=== PATIENT | female | born 1945 | race Caucasian/White ===

== ENCOUNTER → 2016-10-28 | Outpatient (REF) | payer MEDICARE | LOC: M LAB REF 16:31 | PROVIDERS: ATTEND Physician Assistant | DX: N39.0 Urinary tract infection, site not specified (principal) ==

== ENCOUNTER → 2016-12-31 | Outpatient (CLI) | payer MEDICARE ==
--- NOTE | 2017-01-02 08:13 | RADONC ---
RADIATION ONCOLOGY FOLLOWUP NOTE DATE: 12/31/2016 CHART NUMBER: [id number] DIAGNOSIS: Left breast cancer. STAGE: 1A, [id number]. ECOG PERFORMANCE STATUS: 0. FOLLOWUP NOTE: Ms. 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 The patient presents today reporting that she is doing quite well with no complaints at this time related to her radiation therapy or disease. She has no breast or bone pain. The patient's review of systems is noncontributory. She denies nausea, vomiting, fevers, chills, night sweats, diplopia, headaches, anxiety or depression, anorexia, weight loss, visual disturbances, chest pain, urinary or bowel difficulties, bone pain, or neurological problems. PHYSICAL EXAMINATION: The patient is a well-developed, well-nourished, female in no acute distress. HEENT exam is normocephalic, atraumatic. Extraocular movements are intact. There is no palpable cervical, supraclavicular, infraclavicular, axillary, or inguinal lymphadenopathy present. Lungs are clear to auscultation and percussion. Heart has a regular rate and rhythm. Abdomen is benign with no hepatosplenomegaly, masses, or tenderness. Breast examination reveals no masses or discharge bilaterally. Skeletal examination reveals no tenderness to pressure or percussion of the bony skeleton. Extremities reveal no clubbing, cyanosis, or edema. Neurologic exam is grossly intact, as is the remainder of the physical examination. ASSESSMENT: The patient is clinically DUDLEY at this time and will be seen by us again in 1 year for further followup. She will also continue to be followed by her other physicians as well. cc: Stephani cAosta MD *Dr. Mae
== END ==
LOC: M ONCR 13:56
PROVIDERS: ATTEND Radiology Radiation Oncology
DX: C50.312 Malignant neoplasm of lower-inner quadrant of left female breast (principal)

== ENCOUNTER → 2017-03-12 | Outpatient (REF) | payer MEDICARE ==
[2017-03-12 14:24] LABS: PERCENT SATURATION 27.9 % (13.2-37.4)
== END ==
LOC: M LAB REF 13:39
PROVIDERS: ATTEND Internal Medicine Medical Oncology
DX: C34.90 Malignant neoplasm of unspecified part of unspecified bronchus or lung (principal); D64.9 Anemia, unspecified

== ENCOUNTER → 2017-06-24 | Outpatient (REF) | payer MEDICARE | LOC: M LAB REF 10:00 | PROVIDERS: ATTEND Physician Assistant Medical | DX: N39.0 Urinary tract infection, site not specified (principal) ==

== ENCOUNTER → 2017-07-30 | Outpatient (CLI) | payer MEDICARE ==
--- NOTE | 2017-07-30 10:10 | REP ---
Bilateral screening digital mammogram: The patient indicates that she has had a clinical breast exam on August 14, 2017. The patient has a history of left breast carcinoma with lumpectomy. Comparisons are 04/21/2014 and 04/20/2013. The surgical scar posteriorly in the left breast has significantly decreased from 04/20/2013. There is moderately dense heterogeneous breast parenchyma, not otherwise significantly changed. There are scattered benign calcifications, unchanged. There has been no interval development of masses, areas of structural distortion or clusters of microcalcifications typical of malignancy. Impression: There is no evidence of malignancy. BI-RADS/ACR category 2 mammogram. Benign finding(s). Routine annual screening mammography is recommended. This mammogram was interpreted with the aid of an FDA-approved computer-aided detection system. A. Negative x-ray reports should not delay biopsy if a dominant or clinically suspicious mass is present. B. Four to eight percent of cancers are not identified by x-ray. C. Adenosis and dense breasts may obscure an underlying neoplasm. The patient letter being requested is M1. Unreviewed MTDD
== END ==
LOC: M RAD 09:19
PROVIDERS: ATTEND Internal Medicine Medical Oncology
DX: Z12.31 Encounter for screening mammogram for malignant neoplasm of breast (principal)

== ENCOUNTER → 2017-11-09 | Outpatient (REF) | payer MEDICARE ==
[2017-11-09 22:35] LABS: APPEARANCE, URINE CLOUDY (CLEAR); BACTERIA, URINE AUTO 3+ (NEGATIVE); BILIRUBIN, URINE AUTO NEGATIVE (NEGATIVE); BLOOD, URINE BLOOD 3+ (NEGATIVE); COLOR, URINE YELLOW (YELLOW); GLUCOSE, URINE (UA) AUTO NEGATIVE (NEGATIVE); KETONE, URINE AUTO NEGATIVE (NEGATIVE); LEUKOCYTE ESTERASE, URINE AUTO 3+ (NEGATIVE); NITRITE, URINE AUTO NEGATIVE (NEGATIVE); PROTEIN, URINE AUTO 2+ mg/dL (NEGATIVE); RBC, URINE AUTO TNTC /HPF (0-3); SPECIFIC GRAVITY URINE AUTO 1.015 (1.002-1.035); SQUAMOUS EPITHELIAL CELL UR AU 1 /HPF (0-6); UROBILINOGEN, URINE AUTO 0.2 mg/dL (0.0-2.0); WBC, URINE AUTO TNTC /HPF (0-3)
== END ==
LOC: M LAB REF 15:56
DX: R30.0 Dysuria (principal)
CPT/HCPCS: 81001

== ENCOUNTER → 2018-02-12 | Outpatient (CLI) | payer MEDICARE ==
[2018-02-12 15:17] LABS: BASO % 0.6 % (0.0-1.0); EOS # 0.1 10^3/uL (0.0-0.50); EOS % 1.1 % (0.0-3.0); HEMATOCRIT 34.9 % (36.0-47.0); HEMOGLOBIN 11.4 g/dl (12.0-15.5); IMMATURE GRANULOCYTE % 0.3 % (0-3.0); LYMPH # 1.8 10^3/uL (1.5-4.5); LYMPH % 26.6 % (24.0-44.0); MEAN CORPUSCULAR HEMOGLOBIN 29.8 pg (27.0-33.0); MEAN CORPUSCULAR HGB CONC 32.7 g/dl (32.0-36.5); MEAN CORPUSCULAR VOLUME 91.1 fl (80.0-96.0); MONO # 0.4 10^3/uL (0.0-0.8); MONO % 6.5 % (0.0-5.0); NEUTROPHILS # 4.3 10^3/uL (1.8-7.7); NEUTROPHILS % 64.9 % (36.0-66.0); PLATELET COUNT, AUTOMATED 140 10^3/uL (150-450); RED BLOOD COUNT 3.83 10^6/uL (4.00-5.40); RED CELL DISTRIBUTION WIDTH 14.4 % (11.5-14.5); WHITE BLOOD COUNT 6.7 10^3/uL (4.0-10.0)
[2018-02-12 15:29] LABS: INR 1.18; PROTHROMBIN TIME 15.2 SECONDS (12.4-14.5)
[2018-02-12 15:30] LABS: PARTIAL THROMBOPLASTIN TIME 32.3 SECONDS (26.8-37.9)
[2018-02-12 15:33] LABS: ALBUMIN 3.6 GM/DL (3.2-5.2); ALBUMIN/GLOBULIN RATIO 0.97 (1.00-1.93); ALKALINE PHOSPHATASE 82 U/L (45-117); ALT/SGPT 32 U/L (12-78); AMYLASE 103 U/L (25-115); AST/SGOT 37 U/L (7-37); BILIRUBIN,DIRECT 0.2 MG/DL (0.0-0.2); BILIRUBIN,TOTAL 0.4 MG/DL (0.2-1.0); IRON (FE) 38 UG/DL (50-170); LIPASE 778 U/L (73-393); PERCENT SATURATION 8.8 % (13.2-45.0); TOTAL IRON BINDING CAPACITY 433 UG/DL (250-450); TOTAL PROTEIN 7.3 GM/DL (6.4-8.2)
[2018-02-12 15:49] LABS: HEPATITIS B SURFACE ANTIGEN NEGATIVE (NEGATIVE)
[2018-02-12 16:17] LABS: HEPATITIS C VIRUS ABY INDEX < 0.0 INDEX (<0.8)
[2018-02-12 16:18] LABS: HEPATITIS B CORE ANTIBODY IGM NEGATIVE (NEGATIVE)
[2018-02-12 16:19] LABS: HEPATITIS A ANTIBODY IGM NEGATIVE (NEGATIVE)
[2018-02-17 00:06] LABS: ANCA-ATYPICAL <1:20 titer (Neg:<1:20); ANTI-MITOCHONDRIAL ANTIBODY 2.6 Units (0.0-20.0); ANTINUCLEAR ANTIBODIES DIRECT Negative (Negative); CYTOPLASMIC NEUTROP AB ANCA-C <1:20 titer (Neg:<1:20); LIVER-KIDNEY MICROSOMAL ABY 1.1 Units (0.0-20.0); PERINUCLEAR AB ANCA-P <1:20 titer (Neg:<1:20)
== END ==
LOC: M LAB 14:24
DX: K76.6 Portal hypertension (principal); R19.7 Diarrhea, unspecified; K85.90 Acute pancreatitis without necrosis or infection, unspecified
CPT/HCPCS: 82150

== ENCOUNTER → 2018-02-14 | Outpatient (REF) | payer MEDICARE | LOC: M LAB REF 09:13 | DX: R19.7 Diarrhea, unspecified (principal) | CPT/HCPCS: 87507 ==

== ENCOUNTER 2018-02-26 11:22 | Day surgery (SDC) | payer MEDICARE ==
[~2018-02-26 11:22] MED LIST: GLYCOPYRROLATE INJ 0.2 MG/ML 2 ML VIAL As Ordered; HYDROmorphone HCL 2 MG/ML 1ML VIAL (J1170) As Ordered; KETOROLAC 60 MG/2 ML VIAL (J1885) As Ordered; LIDOCAINE 2% INJ 100 MG/5 ML SDV (FOR ANES.) As Ordered; MIDAZOLAM INJ 2 MG/2 ML VIAL (J2250) As Ordered; NEOSTIGMINE 10 MG/10 ML VIAL (J2710) As Ordered; ONDANSETRON 4MG/2ML VIAL (J2405) As Ordered; PROPOFOL 200 MG/20 ML VIAL As Ordered; ROCURONIUM BROMIDE 50 MG/5 ML VIAL As Ordered; dexameTHASONE 4 MG/ML 1ML VIAL (J1100) As Ordered; fentaNYL 100 MCG/2 ML INJECTION (J3010) As Ordered
[2018-02-26] MEDS ORDERED: LIDOCAINE 1% MDV 20ML VIAL SQ (11:30)
[2018-02-26] MEDS: LR 1,000 ML IV (12:03)
[2018-02-26] MEDS ORDERED: SCOPOLAMINE 1MG TRANSDERMAL PATCH As Ordered (12:57)
[2018-02-26 13:00] LABS: BEDSIDE GLUCOSE 203 MG/DL (83-110)
[2018-02-26] MEDS ORDERED: SCOPOLAMINE 1MG TRANSDERMAL PATCH TOP (13:00)
[2018-02-26] MEDS ORDERED: PHENYLephrine HCL 500 MCG/5 ML (100MCG/ML) SYRINGE (J2370) As Ordered (13:45)
[2018-02-26] MEDS ORDERED: LABETALOL HCL 100 MG/20 ML VIAL As Ordered (13:45)
[2018-02-26] MEDS ORDERED: ONDANSETRON 4MG/2ML VIAL (J2405) IV (14:45)
[2018-02-26] MEDS ORDERED: fentaNYL 100 MCG/2 ML INJECTION (J3010) IV (14:45)
[2018-02-26] MEDS ORDERED: PERCOCET 5MG/325MG TAB PO (14:45)
[2018-02-26] MEDS ORDERED: LR 1,000 ML IV (14:45)
[2018-02-26] MEDS ORDERED: NORCO, ANEXSIA 5/325MG TABLET (HYDROcodone/ACETAMINOPHEN) PO (14:45)
== END 2018-02-26 17:10 | disposition home or self-care (01) ==
LOC: M SDC 11:22
DX: K85.10 Biliary acute pancreatitis without necrosis or infection (principal); I11.0 Hypertensive heart disease with heart failure; E11.9 Type 2 diabetes mellitus without complications; H40.9 Unspecified glaucoma; M10.9 Gout, unspecified; K58.9 Irritable bowel syndrome, unspecified; E78.00 Pure hypercholesterolemia, unspecified; T88.59XD Other complications of anesthesia, subsequent encounter; I50.9 Heart failure, unspecified; R23.3 Spontaneous ecchymoses; M12.9 Arthropathy, unspecified; Z88.1 Allergy status to other antibiotic agents; Z88.5 Allergy status to narcotic agent; Z88.8 Allergy status to other drugs, medicaments and biological substances; Z91.040 Latex allergy status; Z79.899 Other long term (current) drug therapy; Z79.84 Long term (current) use of oral hypoglycemic drugs; Z85.3 Personal history of malignant neoplasm of breast; Z92.3 Personal history of irradiation; Z90.710 Acquired absence of both cervix and uterus; Z87.442 Personal history of urinary calculi
CPT/HCPCS: 47562

== ENCOUNTER → 2018-03-19 | Outpatient (CLI) | payer MEDICARE ==
[2018-03-19 13:08] LABS: ALPHA FETOPROTEIN TUMOR QUANT 4.3 NG/ML (<8.1)
[2018-03-19 13:30] LABS: LIPASE 446 U/L (73-393)
[2018-03-19 13:30] LABS: AMYLASE 85 U/L (25-115)
[2018-03-23 00:06] LABS: IgG SUBCLASS 4(ONLY) 7 mg/dL (2-96)
== END ==
LOC: M LAB 11:55
DX: R11.0 Nausea (principal)
CPT/HCPCS: 82150

== ENCOUNTER → 2018-03-20 | Outpatient (CLI) | payer MEDICARE | LOC: M RAD 08:35 | DX: K85.91 Acute pancreatitis with uninfected necrosis, unspecified (principal) | CPT/HCPCS: 74181 ==

== ENCOUNTER 2018-04-08 11:08 | Day surgery (SDC) | payer MEDICARE ==
[2018-04-08] MEDS ORDERED: NS 1,000 ML IV (13:30)
[2018-04-08] MEDS ORDERED: PROPOFOL 200 MG/20 ML VIAL As Ordered (13:32)
== END 2018-04-08 14:32 | disposition home or self-care (01) ==
LOC: M OPP 11:08
DX: K76.6 Portal hypertension (principal); R11.0 Nausea; K31.7 Polyp of stomach and duodenum; I10 Essential (primary) hypertension; E78.5 Hyperlipidemia, unspecified; E11.9 Type 2 diabetes mellitus without complications; K57.32 Diverticulitis of large intestine without perforation or abscess without bleeding; K58.9 Irritable bowel syndrome, unspecified; K74.60 Unspecified cirrhosis of liver; K21.9 Gastro-esophageal reflux disease without esophagitis; K85.90 Acute pancreatitis without necrosis or infection, unspecified; R23.3 Spontaneous ecchymoses; M19.90 Unspecified osteoarthritis, unspecified site; M10.9 Gout, unspecified; H40.9 Unspecified glaucoma; Z78.0 Asymptomatic menopausal state; Z85.3 Personal history of malignant neoplasm of breast; Z92.3 Personal history of irradiation; Z87.442 Personal history of urinary calculi; Z88.0 Allergy status to penicillin; Z88.8 Allergy status to other drugs, medicaments and biological substances; Z88.1 Allergy status to other antibiotic agents; Z88.3 Allergy status to other anti-infective agents; Z88.5 Allergy status to narcotic agent; Z91.012 Allergy to eggs; Z91.040 Latex allergy status; Z88.2 Allergy status to sulfonamides; Z79.84 Long term (current) use of oral hypoglycemic drugs; Z79.899 Other long term (current) drug therapy
CPT/HCPCS: 43235

== ENCOUNTER → 2018-05-13 | Outpatient (CLI) | payer MEDICARE | LOC: M WHC 09:59 | DX: M85.851 Other specified disorders of bone density and structure, right thigh (principal); M85.852 Other specified disorders of bone density and structure, left thigh; C50.019 Malignant neoplasm of nipple and areola, unspecified female breast; Z79.899 Other long term (current) drug therapy | CPT/HCPCS: 77080 ==

== ENCOUNTER → 2018-05-18 | Outpatient (CLI) | payer MEDICARE ==
[2018-05-18 15:49] LABS: AMYLASE 138 U/L (25-115)
[2018-05-18 15:49] LABS: LIPASE 1126 U/L (73-393)
== END ==
LOC: M LAB 14:38
DX: R11.0 Nausea (principal)
CPT/HCPCS: 82150

== ENCOUNTER → 2018-07-01 | Outpatient (CLI) | payer MEDICARE ==
[2018-07-01 15:36] LABS: ALBUMIN 3.6 GM/DL (3.2-5.2); ALBUMIN/GLOBULIN RATIO 1.09 (1.00-1.93); ALKALINE PHOSPHATASE 57 U/L (45-117); ALT/SGPT 21 U/L (12-78); AMYLASE 126 U/L (25-115); AST/SGOT 21 U/L (7-37); BILIRUBIN,DIRECT 0.2 MG/DL (0.0-0.2); BILIRUBIN,TOTAL 0.4 MG/DL (0.2-1.0); LIPASE 3080 U/L (73-393); TOTAL PROTEIN 6.9 GM/DL (6.4-8.2)
== END ==
LOC: M LAB 14:15
DX: R74.8 Abnormal levels of other serum enzymes (principal)
CPT/HCPCS: 82150

== ENCOUNTER 2018-09-09 14:30 | Emergency (ER) | payer MEDICARE ==
[2018-09-09 17:08] LABS: KETONE, URINE AUTO RFX NEGATIVE (NEGATIVE); LEUKOCYTE ESTERASE UR AUTO RFX NEGATIVE (NEGATIVE); MUCUS, URINE RFX SMALL (NEGATIVE); NITRITE, URINE AUTO RFX NEGATIVE (NEGATIVE); RBC, URINE AUTO RFX 0 /HPF (0-3); SPECIFIC GRAVITY UR AUTO RFX 1.023 (1.002-1.035); SQUAM EPITHELIAL CELL UR AURFX 0 /HPF (0-6); WBC, URINE AUTO RFX 3 /HPF (0-3)
[2018-09-09] MEDS: diazePAM 5 MG TAB PO (17:10)
[2018-09-09] MEDS: KETOROLAC 60 MG/2 ML VIAL (J1885) IM (17:10)
== END 2018-09-09 18:38 | disposition home or self-care (01) ==
LOC: M ED 14:30
DX: S39.012A Strain of muscle, fascia and tendon of lower back, initial encounter (principal); X58.XXXA Exposure to other specified factors, initial encounter; Y92.099 Unspecified place in other non-institutional residence as the place of occurrence of the external cause; Y93.E5 Activity, floor mopping and cleaning; Y99.9 Unspecified external cause status; E11.9 Type 2 diabetes mellitus without complications; I10 Essential (primary) hypertension; Z87.442 Personal history of urinary calculi; K21.9 Gastro-esophageal reflux disease without esophagitis; H40.9 Unspecified glaucoma; Z79.84 Long term (current) use of oral hypoglycemic drugs; Z79.899 Other long term (current) drug therapy; Z88.0 Allergy status to penicillin; Z88.8 Allergy status to other drugs, medicaments and biological substances; Z88.5 Allergy status to narcotic agent; Z88.1 Allergy status to other antibiotic agents; Z91.012 Allergy to eggs; Z91.89 Other specified personal risk factors, not elsewhere classified; Z88.2 Allergy status to sulfonamides
CPT/HCPCS: J1885

== ENCOUNTER → 2018-12-14 | Outpatient (CLI) | payer MEDICARE ==
[~2018-12-14] MED LIST changes: +ALLO100T PO; +ARIM1TAB5 PO; +BIMA01SOL OU; +BISO5TAB5 PO; +CALC600T60 PO; +DIAZ2TAB PO; +FLOM0.4C39 PO; +FLUTISP; -GLYCOPYRROLATE INJ 0.2 MG/ML 2 ML VIAL As Ordered; -HYDROmorphone HCL 2 MG/ML 1ML VIAL (J1170) As Ordered; -KETOROLAC 60 MG/2 ML VIAL (J1885) As Ordered; -LIDOCAINE 2% INJ 100 MG/5 ML SDV (FOR ANES.) As Ordered; +LISI10TA4 PO; +METF500T13 PO; +METF850T4 PO; -MIDAZOLAM INJ 2 MG/2 ML VIAL (J2250) As Ordered; +MULT1TAB10 PO; +NAPR-50 PO; -NEOSTIGMINE 10 MG/10 ML VIAL (J2710) As Ordered; -ONDANSETRON 4MG/2ML VIAL (J2405) As Ordered; +PANT20TA2 PO; -PROPOFOL 200 MG/20 ML VIAL As Ordered; -ROCURONIUM BROMIDE 50 MG/5 ML VIAL As Ordered; +SIMV20TA2 PO; +TRIA37.5 PO; +TRIAMT/HCTZ; +VALI2TAB PO; +VICT18IN SC; -dexameTHASONE 4 MG/ML 1ML VIAL (J1100) As Ordered; -fentaNYL 100 MCG/2 ML INJECTION (J3010) As Ordered
[2018-12-14 10:46] LABS: HEMATOCRIT 35.4 % (36.0-47.0); HEMOGLOBIN 11.4 g/dl (12.0-15.5); MEAN CORPUSCULAR HEMOGLOBIN 28.8 pg (27.0-33.0); MEAN CORPUSCULAR HGB CONC 32.2 g/dl (32.0-36.5); MEAN CORPUSCULAR VOLUME 89.4 fl (80.0-96.0); PLATELET COUNT, AUTOMATED 144 10^3/uL (150-450); RED BLOOD COUNT 3.96 10^6/uL (4.00-5.40); WHITE BLOOD COUNT 5.8 10^3/uL (4.0-10.0)
[2018-12-14 11:15] LABS: ALBUMIN 3.8 GM/DL (3.2-5.2); BILIRUBIN,TOTAL 0.6 MG/DL (0.2-1.0); CALCIUM LEVEL 8.6 MG/DL (8.8-10.2); CREATININE FOR GFR 1.08 MG/DL (0.55-1.30); GLOMERULAR FILTRATION RATE 52.8 (>39); POTASSIUM SERUM 3.9 MEQ/L (3.5-5.1)
--- NOTE | 2018-12-14 12:29 | REP ---
Abdominal right upper quadrant ultrasound for cirrhosis surveillance: Comparisons are 02/01/2018 and abdominal and pelvic CT of 02/01/2018. The the patient had a cholecystectomy approximate 1 year ago. There is no intrahepatic or extrahepatic biliary duct dilatation, the common duct measures 4.9 mm in diameter. The hepatic parenchyma is diffusely coarsened heterogeneous compatible with the clinical history of cirrhosis. No hepatic masses are identified. The umbilical vein is recannulated compatible with portal hypertension. The portal vein measures 15 mm in diameter which is slightly dilated, also compatible with portal hypertension. The pancreas is obscured and not optimally visualized. The right kidney measures 8.3 x 4.5 x 3.6 cm and is atrophic size. There is diffuse right renal cortical thinning. There is no right renal hydronephrosis, calculus, mass or cyst. There is no right upper quadrant abdominal ascites. Impression: No hepatic masses are identified. The hepatic parenchyma is diffusely coarsened compatible with the clinical history of cirrhosis. There is recanalization of the umbilical vein and in the portal vein is mildly dilated. These findings are compatible with portal hypertension. There is no right upper quadrant abdominal ascites. Cholecystectomy. Electronically Signed by Simeon Urias MD 12/14/2018 12:22 P
== END ==
LOC: M RAD 09:04
PROVIDERS: ATTEND Physician Assistant Medical
DX: K74.60 Unspecified cirrhosis of liver (principal)

== ENCOUNTER → 2019-01-03 | Outpatient (CLI) | payer MEDICARE ==
[~2019-01-03] MED LIST changes: +ANAS1TAB2 PO; -NAPR-50 PO; +NAPR-837 PO
--- NOTE | 2019-01-07 19:15 | REP ---
ABDOMEN, SITZ MARKER STUDY: 01/07/2019. Clinical history: Sitz marker study. The patient returned 4 days post ingestion of the sitz marker capsule, not the usual 5 days due to her statement that this is when she was instructed to return by the technologist. Findings: A single image is performed. Although it is day four, there are no ring markers from the sitz capsule visible anywhere in the abdomen or pelvis. Assuming observation of the capsule ingestion, all of these have passed. Electronically Signed by Ger Lambert MD 01/08/2019 12:00 P
== END ==
LOC: M RAD 13:52
PROVIDERS: ATTEND Physician Assistant Medical
DX: R19.7 Diarrhea, unspecified (principal)

== ENCOUNTER → 2019-01-28 | Outpatient (CLI) | payer MEDICARE ==
[~2019-01-28] MED LIST changes: +NAPR-50 PO; -NAPR-837 PO
[2019-01-28 13:32] LABS: CREATININE FOR GFR 1.13 MG/DL (0.55-1.30); GLOMERULAR FILTRATION RATE 50.1 (>39)
== END ==
LOC: M LAB 12:12
PROVIDERS: ATTEND Physician Assistant Medical
DX: R74.8 Abnormal levels of other serum enzymes (principal)

== ENCOUNTER → 2019-02-03 | Outpatient (CLI) | payer MEDICARE ==
[~2019-02-03] MED LIST changes: -NAPR-50 PO; +NAPR-837 PO; +PROHANCE 279.3MG/ML 5ML VIAL (A9576) As Ordered ONE
--- NOTE | 2019-02-03 17:15 | REP ---
MRI abdomen and pancreas without and with IV gadolinium: History: Persistently elevated pancreatic enzymes following an episode of pancreatitis in January 2018. Please evaluate, attention to the pancreas. Comparison MRI study is from March 20, 2018. 5 ml of intravenous ProHance is administered for or half-dose gadolinium enhancement. Technique: Axial and coronal T1 and T2-weighted scans were obtained. Sequences include spin-echo, fast spin echo, gradient echo, in and cll-zz-ookpy, and dynamically acquired sequential post contrast images with T1 fat sat sequence. MRI findings: The left lobe of the liver appears somewhat hypertrophied. Liver contour is macronodular. The spleen is enlarged measuring up to 14.8 cm. It is homogeneous. This and the finding of recannulation of the umbilical vein suggest portal hypertension and possibly cirrhosis. There is no evidence of ascites. No hepatic mass lesion is seen. There are one or two tiny subcentimeter hepatic cysts. There are two tiny cysts adjacent to one another in the body of the pancreas along its inferior margin. In the aggregate, these cysts measure 13 mm in greatest diameter. The pancreatic duct is not dilated. The common bile duct is not dilated. The gallbladder is surgically absent. Postcontrast images of the pancreas show no evidence of abnormal enhancement either increased or decreased. No enhancement is seen in the two small cysts noted inferiorly. No retroperitoneal or upper abdominal adenopathy is seen. No adrenal abnormality observed. The findings are felt to be unchanged from the March 20, 2018 prior images. Impression: Findings suggestive of cirrhosis and portal hypertension. Splenomegaly. Recanalization of the umbilical vein. Prominent left lobe and macronodular liver contour. There is a 13 mm septated cyst in the posterior and inferior margin of the pancreas body unchanged. No pancreatic or biliary ductal dilation is observed. Otherwise negative. Electronically Signed by Zeb Ernst MD 02/03/2019 06:56 P
== END ==
LOC: M RAD 13:12
PROVIDERS: ATTEND Physician Assistant Medical
DX: R74.9 Abnormal serum enzyme level, unspecified (principal)
CPT/HCPCS: 74183; A9576

== ENCOUNTER → 2019-06-15 | Outpatient (CLI) | payer MEDICARE ==
[~2019-06-15] MED LIST changes: -PROHANCE 279.3MG/ML 5ML VIAL (A9576) As Ordered ONE
[2019-06-15 16:27] LABS: BASO % 0.5 % (0.0-1.0); EOS # 0.1 10^3/uL (0.0-0.50); EOS % 2.1 % (0.0-3.0); HEMATOCRIT 34.8 % (36.0-47.0); HEMOGLOBIN 11.1 g/dl (12.0-15.5); LYMPH # 1.2 10^3/uL (1.5-4.5); LYMPH % 28.5 % (24.0-44.0); MEAN CORPUSCULAR HEMOGLOBIN 28.2 pg (27.0-33.0); MEAN CORPUSCULAR HGB CONC 31.9 g/dl (32.0-36.5); MEAN CORPUSCULAR VOLUME 88.3 fl (80.0-96.0); MONO # 0.3 10^3/uL (0.0-0.8); MONO % 7.4 % (0.0-5.0); NEUTROPHILS # 2.7 10^3/uL (1.8-7.7); NEUTROPHILS % 61.3 % (36.0-66.0); RED BLOOD COUNT 3.94 10^6/uL (4.00-5.40); WHITE BLOOD COUNT 4.4 10^3/uL (4.0-10.0)
[2019-06-15 16:41] LABS: ALBUMIN 3.4 GM/DL (3.2-5.2); BILIRUBIN,TOTAL 0.3 MG/DL (0.2-1.0); CALCIUM LEVEL 8.6 MG/DL (8.8-10.2); CREATININE FOR GFR 1.23 MG/DL (0.55-1.30); GLOMERULAR FILTRATION RATE 45.4 (>39); POTASSIUM SERUM 3.3 MEQ/L (3.5-5.1); TOTAL PROTEIN 6.9 GM/DL (6.4-8.2)
[2019-06-15 17:45] LABS: PLATELET COUNT, AUTOMATED 96 10^3/uL (150-450)
--- NOTE | 2019-06-17 09:10 | ECGEPIP ---
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
== END ==
LOC: M LAB 14:27
PROVIDERS: ATTEND Internal Medicine Gastroenterology
DX: K86.2 Cyst of pancreas (principal); R74.8 Abnormal levels of other serum enzymes

== ENCOUNTER → 2019-10-03 | Outpatient (CLI) | payer MEDICARE ==
[~2019-10-03] MED LIST changes: -BISO5TAB5 PO; +BISO5TAB9 PO; -SIMV20TA2 PO; +SIMV20TA22 PO
--- NOTE | 2019-10-03 10:39 | REP ---
RIGHT UPPER QUADRANT ULTRASOUND: Real-time sonographic evaluation of the right upper quadrant was performed. The patient has had a prior cholecystectomy. Common bile duct measures 8 mm maximally which is normal for a patient status post cholecystectomy. Echotexture of the liver is diffusely heterogenous and increased compatible with diffuse fibrofatty infiltration. Somewhat nodular surface. Findings of cirrhosis. No gross mass is seen. There is a recannulized umbilical vein noted. Pancreas is not well seen due to overlying bowel gas. Right kidney demonstrates no hydronephrosis with normal size 10.3 cm in length. No ascites is seen. IMPRESSION:Status-post cholecystectomy. No significant biliary dilatation. Diffuse heterogenous increased echotexture of the liver compatible with cirrhosis, with recannulized umbilical vein. Liver is difficult to penetrate due to extensive fibrofatty infiltration. No gross mass is seen. Electronically Signed by Simeon Mace MD 10/03/2019 03:50 P
[2019-10-03 10:50] LABS: AMYLASE 106 U/L (25-115); LIPASE 594 U/L (73-393)
[2019-10-05 00:06] LABS: ANTINUCLEAR ANTIBODIES DIRECT Negative (Negative); IgG SERUM (part of Subclasses) 909 mg/dL (700-1600); IgG Subclass 1 339 mg/dL (248-810); IgG Subclass 2 436 mg/dL (130-555); IgG Subclass 3 56 mg/dL (15-102); IgG Subclass 4 18 mg/dL (2-96)
== END ==
LOC: M RAD 08:48
PROVIDERS: ATTEND Physician Assistant Medical
DX: K86.2 Cyst of pancreas (principal); K74.60 Unspecified cirrhosis of liver; Z90.49 Acquired absence of other specified parts of digestive tract

== ENCOUNTER → 2019-10-05 | Outpatient (CLI) | payer MEDICARE ==
--- NOTE | 2019-10-05 12:02 | REPMRS ---
Patient History The patient states she has not had a clinical breast exam in over a year. Family history of breast cancer under age 50 in maternal aunt, breast cancer at age 50 or over in paternal aunt. Malignant localization of breast nodule of the left breast, May 21, 2011. Radiation therapy of the left breast, 2010. 3D TOMOSYNTHESIS WAS PERFORMED. Digital Mammo Screening Bilat: October 05, 2019 - Exam #: [id number] Bilateral CC and MLO view(s) were taken. Technologist: Melissa Parham, Technologist Prior study comparison: July 30, 2017, bilateral digital mammo screening bilat performed at [facility]. May 12, 2016, digital woman screen mammo, performed at [facility]. FINDINGS: There are scattered fibroglandular densities. There has been no change in the appearance of the mammogram from the prior studies. There is a mild amount of residual fibroglandular tissue which is fairly symmetric. There is no interval development of dominant mass, architectural distortion, or clustered microcalcification suggestive of malignancy. Assessment: BI-RADS/ACR category 1 mammogram. Negative Mammogram. Recommendation Routine screening mammogram in 1 year (for women over age 40). This mammogram was interpreted with the aid of an FDA-approved computer-aided dectection system. Electronically Signed By: Simeon Mace MD 10/05/19 1127
== END ==
LOC: M RAD 10:31
PROVIDERS: ATTEND Internal Medicine
DX: Z12.31 Encounter for screening mammogram for malignant neoplasm of breast (principal)

== ENCOUNTER → 2020-04-05 | Outpatient (CLI) | payer MEDICARE ==
[~2020-04-05] MED LIST changes: +BISO5TAB14 PO; -BISO5TAB9 PO
--- NOTE | 2020-04-05 09:58 | REP ---
RIGHT UPPER QUADRANT ULTRASOUND: Real-time sonographic evaluation of the right upper quadrant performed. The patient has had a prior cholecystectomy. There is expected prominence of the common bile duct 10 mm in diameter. There is a patent umbilical vein. Live has a cirrhotic appearance with coarsened echotexture. No gross liver mass is seen. Pancreas could not be seen due to overlying bowel gas. Right kidney demonstrates no hydronephrosis with normal size 9.7 cm in length. There is no ascites. In the midline of the site of a palpable lump is a ventral hernia, the hernia defect measures 1.9 cm in diameter. Peritoneal fat protrudes into the hernia sac with coughing. IMPRESSION: Status post cholecystectomy. Cirrhotic liver with patent umbilical vein. No ascites seen. At the site of a palpable lump in the midline of the abdomen, is a ventral hernia with the aperture of the hernia 1.9 cm. A small amount of peritoneal fat protrudes into the hernia sac with coughing. Electronically Signed by Simeon Mace MD 04/10/2020 05:49 P
== END ==
LOC: M RAD 09:02
PROVIDERS: ATTEND Physician Assistant Medical
DX: K74.60 Unspecified cirrhosis of liver (principal); K43.9 Ventral hernia without obstruction or gangrene

== ENCOUNTER → 2020-10-09 | Outpatient (CLI) | payer MEDICARE ==
[~2020-10-09] MED LIST changes: +ACET-897 PO; +ALBU83IN NEB; +FURO20TA2 PO; +INSUNSD SC; +LANTINJ4 SC; -PANT20TA2 PO; +PANT20TA6 PO; +POTA10808 PO; +TRAM50TA2 PO; +VITA400T15 PO; +ZOCO20TA PO
--- NOTE | 2020-10-09 10:34 | REP ---
INDICATION: UNSPECIFIED CIRRHOSIS OF LIVER LABS . COMPARISON: 04/05/2020. TECHNIQUE: Real-time sonographic evaluation of right upper quadrant performed. FINDINGS: There has been a prior cholecystectomy.. There is no intrahepatic or extrahepatic biliary dilatation, common bile duct measures 6 mm in maximum diameter. Liver demonstrates diffuse coarsened increased echotexture compatible with diffuse fibrofatty infiltration. No gross mass is seen. Patent umbilical vein is again noted. Pancreas cannot be visualized due to overlying bowel gas. The right kidney demonstrates no hydronephrosis, with a normal size of 9.7 cm in length. No free fluid is seen. IMPRESSION: Chronic liver changes with no gross mass. Patent umbilical vein again noted. No significant change compared to prior study. <Electronically signed by Simeon Mace > 10/09/20 [id number]
== END ==
LOC: M RAD 09:00
PROVIDERS: ATTEND Physician Assistant Medical
DX: K74.60 Unspecified cirrhosis of liver (principal); R74.8 Abnormal levels of other serum enzymes

== ENCOUNTER → 2020-11-06 | Outpatient (CLI) | payer MEDICARE ==
--- NOTE | 2020-11-06 12:59 | REPMRS ---
Patient History The patient states she has not had a clinical breast exam in over a year. Patient is postmenopausal and has history of breast cancer at age 65. Family history of breast cancer under age 50 in maternal aunt, breast cancer at age 50 or over in paternal aunt. Malignant localization of breast nodule of the left breast, May 21, 2011. Radiation therapy of the left breast, 2010. 3D TOMOSYNTHESIS WAS PERFORMED. Volpara breast density b. Digital Woman Screen Mammo: November 06, 2020 - Exam #: [id number] Bilateral CC and MLO view(s) were taken. Technologist: Halle Morales, Technologist Prior study comparison: October 05, 2019, bilateral digital mammo screening bilat, performed at [facility]. July 30, 2017, bilateral digital mammo screening bilat, performed at [facility]. FINDINGS: There are scattered fibroglandular densities. There has been no change in the appearance of the mammogram from the prior studies. There is a mild amount of residual fibroglandular tissue which is fairly symmetric. There is no interval development of dominant mass, architectural distortion, or clustered microcalcification suggestive of malignancy.Large coarse benign appearing calcifications are present. No significant changes when compared with prior studies. Assessment: BI-RADS/ACR category 1 mammogram. Negative Mammogram. Recommendation Routine screening mammogram in 1 year (for women over age 40). This mammogram was interpreted with the aid of an FDA-approved computer-aided dectection system. Electronically Signed By: Simeon Mace MD 11/06/20 [id number]
== END ==
LOC: M WHC 12:06
PROVIDERS: ATTEND Internal Medicine Hematology & Oncology
DX: Z12.31 Encounter for screening mammogram for malignant neoplasm of breast (principal); Z85.3 Personal history of malignant neoplasm of breast; Z92.3 Personal history of irradiation

== ENCOUNTER → 2020-11-09 | Outpatient (REF) | payer MEDICARE ==
[~2020-11-09] MED LIST changes: +LISI10TA22 PO; -LISI10TA4 PO
[2020-11-15 12:10] LABS: FATS NEUTRAL Normal (.); FATS TOTAL Normal (.)
== END ==
LOC: M LAB REF 15:08
PROVIDERS: ATTEND Internal Medicine Hematology & Oncology
DX: R19.5 Other fecal abnormalities (principal)

== ENCOUNTER → 2021-06-25 | Outpatient (CLI) | payer MEDICARE ==
--- NOTE | 2021-06-25 11:23 | REP ---
INDICATION: BARRY W/ LIVER CIRRHOSIS-LABS FIRST. COMPARISON: 10/09/2020. TECHNIQUE: Real-time sonographic evaluation of right upper quadrant performed. FINDINGS: The patient has had a prior cholecystectomy.. There is no intrahepatic or extrahepatic biliary dilatation, common bile duct measures 8 mm in maximum diameter. The liver demonstrates diffuse heterogeneous increased echotexture compatible with diffuse fibrofatty infiltration. There is a patent umbilical vein. No gross liver mass is seen. Pancreas is not seen due to overlying bowel gas. The right kidney demonstrates no hydronephrosis, with a normal size of 9.6 cm in length. No free fluid is seen. IMPRESSION: No change since prior exam. Chronic liver changes with no gross mass. <Electronically signed by Simeon Mace > 06/25/21 [id number]
== END ==
LOC: M RAD 09:38
PROVIDERS: ATTEND Physician Assistant Medical
DX: K75.81 Nonalcoholic steatohepatitis (NASH) (principal); K70.31 Alcoholic cirrhosis of liver with ascites

== ENCOUNTER → 2022-02-21 | Outpatient (CLI) | payer MEDICARE | LOC: M WHC 12:51 | PROVIDERS: ATTEND Internal Medicine Hematology & Oncology | DX: Z13.820 Encounter for screening for osteoporosis (principal); Z12.31 Encounter for screening mammogram for malignant neoplasm of breast; Z85.3 Personal history of malignant neoplasm of breast; M85.88 Other specified disorders of bone density and structure, other site; M85.851 Other specified disorders of bone density and structure, right thigh; M85.852 Other specified disorders of bone density and structure, left thigh ==

== ENCOUNTER → 2022-02-21 | Outpatient (CLI) | payer MEDICARE | LOC: M PLARAD 14:33 | PROVIDERS: ATTEND Internal Medicine Hematology & Oncology | DX: Z85.3 Personal history of malignant neoplasm of breast (principal); M25.511 Pain in right shoulder; M67.813 Other specified disorders of tendon, right shoulder ==

== ENCOUNTER → 2022-02-26 | Outpatient (CLI) | payer MEDICARE | LOC: M WHC 09:57 | PROVIDERS: ATTEND Physician Assistant Medical | DX: K74.60 Unspecified cirrhosis of liver (principal); Z90.49 Acquired absence of other specified parts of digestive tract; K43.9 Ventral hernia without obstruction or gangrene ==

== ENCOUNTER → 2022-04-09 | Outpatient (CLI) | payer MEDICARE ==
[~2022-04-09] MED LIST changes: +ALBU2.5V10 NEB; -ALBU83IN NEB; +D32000TA PO; +FERR324T2 PO; -FLUTISP; +FLUTISP NARES; +FURO40TA2 PO; +INSUDET SC; +POTA10CA32 PO
== END ==
LOC: M PLAIMG 11:18
PROVIDERS: ATTEND Orthopaedic Surgery
DX: M50.30 Other cervical disc degeneration, unspecified cervical region (principal)

== ENCOUNTER 2022-04-14 10:58 | Observation (INO) | payer MEDICARE ==
[~2022-04-14] VITALS: Ht 147.3 cm; Wt 78.0 kg
[2022-04-14] VITALS (8 sets, daily range): BP systolic 113–140; BP diastolic 55–69
[~2022-04-14 10:58] MED LIST changes: -D32000TA PO; -FERR324T2 PO; -FURO40TA2 PO; -INSUDET SC; -POTA10CA32 PO
[2022-04-14 12:06] LABS: BASO % 0.5 % (0.0-1.0); EOS # 0.1 10^3/uL (0.0-0.5); EOS % 1.3 % (0.0-3.0); HEMATOCRIT 24.2 % (36.0-47.0); HEMOGLOBIN 7.3 g/dl (12.0-15.5); LYMPH # 0.8 10^3/uL (1.5-5.0); LYMPH % 20.1 % (24.0-44.0); MEAN CORPUSCULAR HEMOGLOBIN 29.1 pg (27.0-33.0); MEAN CORPUSCULAR HGB CONC 30.2 g/dl (32.0-36.5); MEAN CORPUSCULAR VOLUME 96.4 fl (80.0-96.0); MONO # 0.3 10^3/uL (0.0-0.8); MONO % 6.8 % (2.0-8.0); NEUTROPHILS # 2.7 10^3/uL (1.5-8.5); NEUTROPHILS % 70.8 % (36.0-66.0); RED BLOOD COUNT 2.51 10^6/uL (4.00-5.40); WHITE BLOOD COUNT 3.8 10^3/uL (4.0-10.0)
[2022-04-14 12:09] LABS: PLATELET COUNT, AUTOMATED 83 10^3/uL (150-450)
[2022-04-14 12:33] LABS: CREATININE FOR GFR 1.3 MG/DL (0.55-1.30)
[2022-04-14 12:34] LABS: CALCIUM LEVEL 8.8 MG/DL (8.8-10.2); GLOMERULAR FILTRATION RATE 42.3 (>39); POTASSIUM SERUM 4.2 MEQ/L (3.5-5.1)
[2022-04-14 13:09] LABS: ALBUMIN 2.9 GM/DL (3.2-5.2); BILIRUBIN,DIRECT 0.3 MG/DL (0.0-0.2); BILIRUBIN,TOTAL 0.6 MG/DL (0.2-1.0); PERCENT SATURATION 12.9 % (13.2-45.0); TOTAL PROTEIN 6.5 GM/DL (6.4-8.2)
[2022-04-14 13:54] LABS: INR 1.22; PARTIAL THROMBOPLASTIN TIME 30.1 SECONDS (25.9-37.0); PROTHROMBIN TIME 15.8 SECONDS (12.7-14.5)
[2022-04-14 14:29] LABS: RSV AMPLIFICATION NEGATIVE (NEGATIVE)
[2022-04-14] MEDS ORDERED: ACETAMINOPHEN TAB 650MG DOSE (2X325MG) PO PRN (16:50)
[2022-04-14] MEDS ORDERED: FURO40TA2 PO (17:28)
[2022-04-14] MEDS ORDERED: D32000TA PO (17:28)
[2022-04-14] MEDS ORDERED: POTA10CA32 PO (17:28)
[2022-04-14] MEDS ORDERED: HOME MED LIST COMPLETE! XX SCH (17:30)
[2022-04-14] MEDS ORDERED: FLUTICASONE PROP 0.05% NASAL SPRAY 16 GM (FLONASE) NARES PRN (17:30)
[2022-04-14 17:34] LABS: HEMATOCRIT 23.3 % (36.0-47.0); HEMOGLOBIN 7.1 g/dl (12.0-15.5)
[2022-04-14] MEDS ORDERED: DEXTROSE 50% 50 ML SYRINGE IV PRN (17:35)
[2022-04-14] MEDS ORDERED: GLUCOSE 4GM CHEW TABLET PO PRN (17:35)
[2022-04-14] MEDS ORDERED: GLUCAGON INJ 1MG VIAL SC PRN (17:35)
[2022-04-14] MEDS ORDERED: SIMVASTATIN 20 MG TAB PO SCH (21:00)
[2022-04-14] MEDS ORDERED: INSULIN LISPRO (NovoLOG) PER UNIT SC SCH (21:00)
[2022-04-14] MEDS ORDERED: POTASSIUM CHLORIDE 10MEQ SR TABLET PO SCH (21:00)
[2022-04-14] MEDS ORDERED: LEVEMIR (INSULIN DETEMIR) 1 UNITS/0.01ML SC SCH (21:00)
[2022-04-14] MEDS ORDERED: FUROSEMIDE 20MG/2ML VIAL (J1940) IV ONE (21:00)
[2022-04-14] MEDS ORDERED: bisoproloL fumarate 5 MG TAB PO SCH (21:00)
[2022-04-15 00:30] VITALS: BP 132/61
[2022-04-15 04:00] VITALS: BP 118/56
[2022-04-15 04:12] LABS: HEMATOCRIT 29.2 % (36.0-47.0); MEAN CORPUSCULAR HEMOGLOBIN 29.8 pg (27.0-33.0); MEAN CORPUSCULAR HGB CONC 32.2 g/dl (32.0-36.5); MEAN CORPUSCULAR VOLUME 92.7 fl (80.0-96.0); RED BLOOD COUNT 3.15 10^6/uL (4.00-5.40); WHITE BLOOD COUNT 4.5 10^3/uL (4.0-10.0)
[2022-04-15 04:17] LABS: PLATELET COUNT, AUTOMATED 69 10^3/uL (150-450)
[2022-04-15 04:18] LABS: HEMOGLOBIN 9.4 g/dl (12.0-15.5)
[2022-04-15 04:40] LABS: CALCIUM LEVEL 8.8 MG/DL (8.8-10.2); CREATININE FOR GFR 1.29 MG/DL (0.55-1.30); GLOMERULAR FILTRATION RATE 42.7 (>39); POTASSIUM SERUM 3.6 MEQ/L (3.5-5.1)
[2022-04-15] MEDS: INSULIN LISPRO (NovoLOG) PER UNIT SC SCH ×2 (07:30→13:00)
[2022-04-15 08:00] VITALS: BP 122/60
[2022-04-15] MEDS ORDERED: allopurinoL 100 MG TAB PO SCH (09:00)
[2022-04-15] MEDS ORDERED: lisinopriL 5 MG TAB PO SCH (09:00)
[2022-04-15] MEDS ORDERED: FUROSEMIDE 40 MG TAB PO SCH (09:00)
[2022-04-15] MEDS ORDERED: INSUDET SC (09:05)
[2022-04-15 09:21] VITALS: BP 122/60
[2022-04-15 12:00] VITALS: BP 130/62
[2022-04-15] MEDS ORDERED: FERR324T2 PO (13:10)
== END 2022-04-15 13:50 | disposition home or self-care (01) ==
LOC: M ED 10:58 → M ED INP 10:59 → INTOOBSV 16:08 → UNDOADMOB 16:08 → M ED INP 16:08 → M PCU 18:05
PROVIDERS: ADMIT Internal Medicine; ATTEND Internal Medicine
DX: D64.9 Anemia, unspecified (principal); I10 Essential (primary) hypertension; H40.9 Unspecified glaucoma; C50.912 Malignant neoplasm of unspecified site of left female breast; Z92.3 Personal history of irradiation; K58.8 Other irritable bowel syndrome; E78.00 Pure hypercholesterolemia, unspecified; E10.9 Type 1 diabetes mellitus without complications; Z79.4 Long term (current) use of insulin; R60.0 Localized edema; M10.9 Gout, unspecified; Z88.0 Allergy status to penicillin; Z88.2 Allergy status to sulfonamides; Z91.040 Latex allergy status; Z88.8 Allergy status to other drugs, medicaments and biological substances; Z88.5 Allergy status to narcotic agent; Z91.012 Allergy to eggs
CPT/HCPCS: 36415; 36430; 80048; 80076; 82607; 82728; 82746; 83550; 84145; 85014; 85018; 85025; 85027; 85046; 85049; 85055; 85610; 85730; 86850; 86900; 86901; 86920; 87631; 93306; 96374; 97116; 97161; 97165; 99285; G0378; J1815; J1940; P9016

== ENCOUNTER → 2022-04-30 | Outpatient (CLI) | payer MEDICARE ==
[~2022-04-30] MED LIST changes: +D32000TA PO; +FERR324T2 PO; +FURO40TA2 PO; +INSUDET SC; +POTA10CA32 PO
== END ==
LOC: M PLAIMG 14:00
PROVIDERS: ATTEND Otolaryngology
DX: R04.0 Epistaxis (principal)

== ENCOUNTER → 2022-05-08 | Outpatient (CLI) | payer MEDICARE ==
[~2022-05-08] MED LIST changes: +VITMTA PO
[2022-05-08 13:55] LABS: CREATININE FOR GFR 1.31 MG/DL (0.55-1.30); GLOMERULAR FILTRATION RATE 41.9 (>39)
[2022-05-08 14:55] LABS: CA19-9 TUMOR MARKER,CARBOHYDRA 16.6 U/ML (<35.0)
== END ==
LOC: M LAB 11:50
PROVIDERS: ATTEND Internal Medicine Gastroenterology
DX: D64.9 Anemia, unspecified (principal); K86.2 Cyst of pancreas

== ENCOUNTER → 2022-05-08 | Outpatient (CLI) | payer MEDICARE | LOC: M LABSMTC 09:49 | PROVIDERS: ATTEND Anesthesiology | DX: Z11.52 Encounter for screening for COVID-19 (principal); Z20.822 Contact with and (suspected) exposure to COVID-19 ==

== ENCOUNTER 2022-05-13 12:37 | Day surgery (SDC) | payer MEDICARE ==
[~2022-05-13] VITALS: Ht 147.3 cm; Wt 78.0 kg
[~2022-05-13 12:37] MED LIST changes: +LIDOCAINE 2% 100MG/5ML SDV (FOR ANES.) As Ordered ONE; +NS 1,000 ML IV ONE; +fentaNYL 100 MCG/2 ML INJECTION As Ordered ONE; +propofoL 200 MG/20 ML VIAL As Ordered ONE
[2022-05-13 14:18] VITALS: BP 133/72
== END 2022-05-13 14:21 | disposition home or self-care (01) ==
LOC: M OPP 12:37
PROVIDERS: ATTEND Internal Medicine Gastroenterology
DX: D62 Acute posthemorrhagic anemia (principal); K74.60 Unspecified cirrhosis of liver; K31.811 Angiodysplasia of stomach and duodenum with bleeding; I10 Essential (primary) hypertension; E78.5 Hyperlipidemia, unspecified; E11.9 Type 2 diabetes mellitus without complications; K21.9 Gastro-esophageal reflux disease without esophagitis; M19.90 Unspecified osteoarthritis, unspecified site; F41.9 Anxiety disorder, unspecified; M10.9 Gout, unspecified; Z85.3 Personal history of malignant neoplasm of breast; Z92.3 Personal history of irradiation; Z88.1 Allergy status to other antibiotic agents; Z88.2 Allergy status to sulfonamides; Z88.3 Allergy status to other anti-infective agents; Z88.5 Allergy status to narcotic agent; Z88.8 Allergy status to other drugs, medicaments and biological substances; Z91.012 Allergy to eggs; Z91.040 Latex allergy status; Z79.4 Long term (current) use of insulin; Z79.899 Other long term (current) drug therapy; Z83.3 Family history of diabetes mellitus; Z82.49 Family history of ischemic heart disease and other diseases of the circulatory system
CPT/HCPCS: 43255; J3010

== ENCOUNTER → 2022-06-02 | Outpatient (CLI) | payer MEDICARE ==
[~2022-06-02] MED LIST changes: -LIDOCAINE 2% 100MG/5ML SDV (FOR ANES.) As Ordered ONE; -NS 1,000 ML IV ONE; +PROHANCE 279.3MG/ML 5ML VIAL As Ordered ONE; +SIMV-253 PO; -ZOCO20TA PO; -fentaNYL 100 MCG/2 ML INJECTION As Ordered ONE; -propofoL 200 MG/20 ML VIAL As Ordered ONE
== END ==
LOC: M RAD 14:37
PROVIDERS: ATTEND Internal Medicine Gastroenterology
DX: K86.2 Cyst of pancreas (principal); D37.8 Neoplasm of uncertain behavior of other specified digestive organs; K74.60 Unspecified cirrhosis of liver; K76.6 Portal hypertension; N28.1 Cyst of kidney, acquired
CPT/HCPCS: 74183; A9576

== ENCOUNTER → 2022-11-24 | Outpatient (CLI) | payer MEDICARE ==
[~2022-11-24] MED LIST changes: +LANTINJ4; -POTA10CA32 PO; +POTA10CA33 PO; -PROHANCE 279.3MG/ML 5ML VIAL As Ordered ONE
== END ==
LOC: M RAD 15:36
PROVIDERS: ATTEND Nurse Practitioner
DX: R07.82 Intercostal pain (principal)

== ENCOUNTER → 2022-12-08 | Outpatient (REF) | payer MEDICARE ==
[2022-12-08 16:55] LABS: HEMOGLOBIN A1c 7.3 % (4.0-6.0)
== END ==
LOC: M LAB REF 15:34
PROVIDERS: ATTEND Internal Medicine
DX: E11.9 Type 2 diabetes mellitus without complications (principal)

== ENCOUNTER → 2023-02-18 | Outpatient (CLI) | payer MEDICARE ==
[~2023-02-18] MED LIST changes: +FLUT50SP17 NARES; -FLUTISP NARES
[2023-02-18 15:46] LABS: BILIRUBIN,DIRECT 0.6 MG/DL (<0.4); BILIRUBIN,TOTAL 1.3 MG/DL (0.3-1.2); TOTAL PROTEIN 6.4 G/DL (5.7-8.2)
== END ==
LOC: M LAB 14:04
PROVIDERS: ATTEND Physician Assistant Medical
DX: K74.60 Unspecified cirrhosis of liver (principal); K86.2 Cyst of pancreas; R19.7 Diarrhea, unspecified

== ENCOUNTER → 2023-02-23 | Outpatient (CLI) | payer MEDICARE | LOC: M WHC 11:13 | PROVIDERS: ATTEND Nurse Practitioner | DX: Z12.31 Encounter for screening mammogram for malignant neoplasm of breast (principal); Z85.3 Personal history of malignant neoplasm of breast ==

== ENCOUNTER → 2023-03-09 | Outpatient (CLI) | payer MEDICARE | LOC: M WHC 08:00 | PROVIDERS: ATTEND Physician Assistant Medical | DX: K74.60 Unspecified cirrhosis of liver (principal); K86.2 Cyst of pancreas; Z90.49 Acquired absence of other specified parts of digestive tract ==

== ENCOUNTER 2023-05-07 07:16 | Day surgery (SDC) | payer MEDICARE ==
[~2023-05-07] VITALS: Ht 147.3 cm; Wt 76.7 kg
[~2023-05-07 07:16] MED LIST changes: +HUMU1INJ2 SC; +IRON65TA2 PO; -LANTINJ4; +LIDOCAINE 2% 100MG/5ML SDV (FOR ANES.) As Ordered ONE; +NS 1,000 ML IV ONE; -POTA10CA33 PO; +POTA10CA60 PO; +propofoL 200 MG/20 ML VIAL As Ordered ONE
[2023-05-07] MEDS ORDERED: propofoL 200 MG/20 ML VIAL As Ordered ONE (09:01)
[2023-05-07 09:31] VITALS: BP 119/49; TEMP 96.6; O2SAT 96
== END 2023-05-07 10:30 | disposition home or self-care (01) ==
LOC: M OPP 07:16
PROVIDERS: ATTEND Internal Medicine Gastroenterology
DX: Z12.11 Encounter for screening for malignant neoplasm of colon (principal); Z86.010 Personal history of colon polyps; D12.3 Benign neoplasm of transverse colon; D12.5 Benign neoplasm of sigmoid colon; K57.30 Diverticulosis of large intestine without perforation or abscess without bleeding; K64.8 Other hemorrhoids; Z79.02 Long term (current) use of antithrombotics/antiplatelets; Z79.1 Long term (current) use of non-steroidal anti-inflammatories (NSAID); Z79.4 Long term (current) use of insulin; Z79.899 Other long term (current) drug therapy; Z88.1 Allergy status to other antibiotic agents; Z88.2 Allergy status to sulfonamides; Z88.5 Allergy status to narcotic agent; Z88.8 Allergy status to other drugs, medicaments and biological substances

== ENCOUNTER → 2023-06-11 | Outpatient (CLI) | payer MEDICARE ==
[~2023-06-11] MED LIST changes: -LIDOCAINE 2% 100MG/5ML SDV (FOR ANES.) As Ordered ONE; -NS 1,000 ML IV ONE; -propofoL 200 MG/20 ML VIAL As Ordered ONE
[2023-06-11 15:53] LABS: ALBUMIN 2.8 G/DL (3.2-5.2); BILIRUBIN,DIRECT 0.6 MG/DL (<0.4); BILIRUBIN,TOTAL 1.4 MG/DL (0.3-1.2); CREATININE FOR GFR 1.12 MG/DL (0.55-1.30); GLOMERULAR FILTRATION RATE 50.1 (>39)
== END ==
LOC: M LAB 14:10
PROVIDERS: ATTEND Physician Assistant Medical
DX: K74.60 Unspecified cirrhosis of liver (principal); K86.2 Cyst of pancreas

== ENCOUNTER → 2023-06-25 | Outpatient (CLI) | payer MEDICARE ==
[~2023-06-25] MED LIST changes: +PROHANCE 279.3MG/ML 15ML VIAL As Ordered ONE; +PROHANCE 279.3MG/ML 5ML VIAL As Ordered ONE
== END ==
LOC: M RAD 08:55
PROVIDERS: ATTEND Physician Assistant Medical
DX: K74.60 Unspecified cirrhosis of liver (principal); K86.2 Cyst of pancreas; K76.6 Portal hypertension; R16.1 Splenomegaly, not elsewhere classified
CPT/HCPCS: 74183; A9576

== ENCOUNTER → 2023-09-15 | Outpatient (CLI) | payer MEDICARE ==
[~2023-09-15] MED LIST changes: -PROHANCE 279.3MG/ML 15ML VIAL As Ordered ONE; -PROHANCE 279.3MG/ML 5ML VIAL As Ordered ONE
== END ==
LOC: M RAD 09:08
PROVIDERS: ATTEND Physician Assistant Medical
DX: R10.32 Left lower quadrant pain (principal)

== ENCOUNTER → 2023-12-14 | Outpatient (CLI) | payer MEDICARE ==
[~2023-12-14] MED LIST changes: +BENA25CA4 PO; -FLUT50SP17 NARES; +FLUTISP NARES
[2023-12-14 15:09] LABS: ALBUMIN 2.8 G/DL (3.2-5.2); BILIRUBIN,DIRECT 0.7 MG/DL (<0.4); BILIRUBIN,TOTAL 1.6 MG/DL (0.3-1.2); CREATININE FOR GFR 1.08 MG/DL (0.55-1.30); GLOMERULAR FILTRATION RATE 52.1 (>39)
== END ==
LOC: M LAB 13:52
PROVIDERS: ATTEND Physician Assistant Medical
DX: K74.60 Unspecified cirrhosis of liver (principal); R10.32 Left lower quadrant pain

== ENCOUNTER → 2023-12-16 | Outpatient (CLI) | payer MEDICARE ==
[~2023-12-16] MED LIST changes: +GASTROGRAFIN SOLUTION 30ML As Ordered ONE; +ISOVUE-370 76% 100ML VIAL As Ordered ONE
== END ==
LOC: M RAD 13:51
PROVIDERS: ATTEND Physician Assistant Medical
DX: R10.32 Left lower quadrant pain (principal); K74.60 Unspecified cirrhosis of liver; K43.9 Ventral hernia without obstruction or gangrene; N28.1 Cyst of kidney, acquired
CPT/HCPCS: 74178; Q9963; Q9967

== ENCOUNTER → 2024-03-01 | Outpatient (CLI) | payer MEDICARE ==
[~2024-03-01] MED LIST changes: -GASTROGRAFIN SOLUTION 30ML As Ordered ONE; -ISOVUE-370 76% 100ML VIAL As Ordered ONE; -POTA10CA60 PO; +POTA10CA70 PO
== END ==
LOC: M WHC 11:04
PROVIDERS: ATTEND Nurse Practitioner
DX: Z85.3 Personal history of malignant neoplasm of breast (principal); D64.9 Anemia, unspecified; M85.89 Other specified disorders of bone density and structure, multiple sites; R92.8 Other abnormal and inconclusive findings on diagnostic imaging of breast; Z79.01 Long term (current) use of anticoagulants; R60.0 Localized edema
CPT/HCPCS: 77066; 77080; G0279

== ENCOUNTER 2024-05-09 20:30 | Emergency (ER) | payer MEDICARE ==
[~2024-05-09] VITALS: Ht 147.3 cm; Wt 78.0 kg
[2024-05-09 21:28] LABS: BASO % 0.1 % (0.0-1.0); HEMATOCRIT 35.1 % (36.0-47.0); LYMPH # 0.3 10^3/uL (1.5-5.0); MEAN CORPUSCULAR HEMOGLOBIN 37.2 pg (27.0-33.0); MEAN CORPUSCULAR HGB CONC 34.2 g/dl (32.0-36.5); MEAN CORPUSCULAR VOLUME 108.7 fl (80.0-96.0); MONO # 0.4 10^3/uL (0.0-0.8); MONO % 3.8 % (2.0-8.0); NEUTROPHILS # 8.7 10^3/uL (1.5-8.5); NEUTROPHILS % 92.2 % (36.0-66.0); RED BLOOD COUNT 3.23 10^6/uL (4.00-5.40); WHITE BLOOD COUNT 9.4 10^3/uL (4.0-10.0)
[2024-05-09 21:37] LABS: PLATELET COUNT, AUTOMATED 42 10^3/uL (150-450)
[2024-05-09] MEDS: ACETAMINOPHEN TAB 650MG DOSE (2X325MG) PO ONE (21:45)
[2024-05-09 21:48] LABS: ALBUMIN 2.6 G/DL (3.2-5.2); BILIRUBIN,DIRECT 1.2 MG/DL (<0.4); BILIRUBIN,TOTAL 2.4 MG/DL (0.3-1.2); CALCIUM LEVEL 8.1 MG/DL (8.3-10.6); CREATININE FOR GFR 1.49 MG/DL (0.55-1.30); GLOMERULAR FILTRATION RATE 35.9 (>39); POTASSIUM SERUM 3.7 MMOL/L (3.5-5.1); TOTAL PROTEIN 5.8 G/DL (5.7-8.2)
[2024-05-09] MEDS: NS 1,000 ML IV ONE (22:15)
[2024-05-09] MEDS ORDERED: ISOVUE-370 76% 100ML VIAL As Ordered ONE (22:28)
[2024-05-09] MEDS: FAMOTIDINE 20MG/2ML VIAL IVP ONE (22:51)
[2024-05-09] MEDS: ONDANSETRON 4MG 2ML VIAL IV ONE (22:51)
[2024-05-10 01:15] VITALS: BP 115/58; TEMP 98.4; O2SAT 95
[2024-05-10] MEDS ORDERED: PEPC1TAB5 PO (01:34)
[2024-05-10] MEDS ORDERED: ONDA-282 PO (01:34)
== END 2024-05-10 01:41 | disposition home or self-care (01) ==
LOC: M ED 20:30
DX: A09 Infectious gastroenteritis and colitis, unspecified (principal); E11.9 Type 2 diabetes mellitus without complications; I10 Essential (primary) hypertension; Z88.1 Allergy status to other antibiotic agents; Z88.2 Allergy status to sulfonamides; Z88.8 Allergy status to other drugs, medicaments and biological substances; Z79.1 Long term (current) use of non-steroidal anti-inflammatories (NSAID); Z79.4 Long term (current) use of insulin; Z79.810 Long term (current) use of selective estrogen receptor modulators (SERMs); Z79.899 Other long term (current) drug therapy
CPT/HCPCS: 74177; 80048; 80076; 81001; 83690; 85025; 85049; 85055; 93041; 96361; 96374; 99285; J2405; Q9967

== ENCOUNTER 2024-09-21 13:48 | Inpatient (IN) | payer MEDICARE ==
[~2024-09-21] VITALS: Ht 147.3 cm; Wt 74.4 kg
[~2024-09-21 13:48] MED LIST changes: +ONDA-282 PO; +PEPC1TAB5 PO
[2024-09-21 16:24] LABS: HEMATOCRIT 39.9 % (36.0-47.0); HEMOGLOBIN 13.6 g/dl (12.0-15.5); MEAN CORPUSCULAR HEMOGLOBIN 37.6 pg (27.0-33.0); MEAN CORPUSCULAR HGB CONC 34.1 g/dl (32.0-36.5); MEAN CORPUSCULAR VOLUME 110.2 fl (80.0-96.0); RED BLOOD COUNT 3.62 10^6/uL (4.00-5.40); WHITE BLOOD COUNT 5.6 10^3/uL (4.0-10.0)
[2024-09-21 16:56] LABS: PLATELET COUNT, AUTOMATED 68 10^3/uL (150-450)
[2024-09-21 17:03] LABS: ERYTHROCYTE SEDIMENTATION RATE 69 mm/hr (0-30)
[2024-09-21 18:02] LABS: EOSINOPHILS 1 % (0-3); LYMPHOCYTES 18 % (16-44); MONOCYTES 8 % (0-5); NEUTROPHILS 73 % (28-66); PLATELET ESTIMATE DECREASED (NORMAL)
[2024-09-21] MEDS ORDERED: VANCOMYCIN HCL 1,500 MG in IV FLUID PLACE HOLDER 1 EA IV ONE (19:50)
[2024-09-21] MEDS: VANCOMYCIN 1,500 MG/300 ML IV BAG *LOAD IV ONE (20:00)
[2024-09-21] MEDS: OYSTER SHELL CALCIUM 500 MG TAB PO SCH (21:00)
[2024-09-21] MEDS ORDERED: MULTTAB61 PO (21:04)
[2024-09-21] MEDS ORDERED: HOME MED LIST COMPLETE! XX SCH (21:10)
[2024-09-21] MEDS ORDERED: MOM 30ML SUSPENSION UDC PO PRN (21:30)
[2024-09-21] MEDS ORDERED: DEXTROSE 50% 50ML SYRINGE IV PRN (21:30)
[2024-09-21] MEDS ORDERED: GLUCAGON INJ 1MG VIAL SC PRN (21:30)
[2024-09-21 22:30] VITALS: TEMP 98.1; O2SAT 98
[2024-09-21] MEDS: ACETAMINOPHEN 325 MG TAB PO PRN (23:09)
[2024-09-21] MEDS: SIMVASTATIN 20 MG TAB PO SCH (23:24)
[2024-09-21] MEDS: POTASSIUM CHLORIDE 10MEQ SR TABLET PO SCH (23:24)
[2024-09-21] MEDS: bisoproloL fumarate 5 MG TAB PO SCH (23:24)
[2024-09-21 23:49] LABS: ALBUMIN 2.4 G/DL (3.2-5.2); BILIRUBIN,TOTAL 2.9 MG/DL (0.3-1.2); CALCIUM LEVEL 8.1 MG/DL (8.3-10.6); CREATININE FOR GFR 1.01 MG/DL (0.55-1.30); GLOMERULAR FILTRATION RATE 56.3 (>39); POTASSIUM SERUM 3.8 MMOL/L (3.5-5.1); TOTAL PROTEIN 6.2 G/DL (5.7-8.2)
[2024-09-22 04:35] VITALS: BP 133/60; TEMP 98.6; O2SAT 97
[2024-09-22 07:07] LABS: HEMATOCRIT 32.9 % (36.0-47.0); MEAN CORPUSCULAR HEMOGLOBIN 37.2 pg (27.0-33.0); MEAN CORPUSCULAR HGB CONC 34.3 g/dl (32.0-36.5); MEAN CORPUSCULAR VOLUME 108.2 fl (80.0-96.0); RED BLOOD COUNT 3.04 10^6/uL (4.00-5.40); WHITE BLOOD COUNT 4.4 10^3/uL (4.0-10.0)
[2024-09-22 07:38] LABS: GLOMERULAR FILTRATION RATE 56.9 (>39); POTASSIUM SERUM 3.5 MMOL/L (3.5-5.1)
[2024-09-22 07:49] LABS: HEMOGLOBIN 11.3 g/dl (12.0-15.5)
[2024-09-22 07:50] LABS: PLATELET COUNT, AUTOMATED 63 10^3/uL (150-450)
[2024-09-22] MEDS: MULTIVITAMINS/MINERALS THERAP 1 TAB PO SCH (08:20)
[2024-09-22] MEDS: allopurinoL 100 MG TAB PO SCH (08:21)
[2024-09-22] MEDS: lisinopriL 5 MG TAB PO SCH (08:21)
[2024-09-22] MEDS: LACTOBACILLUS ACIDOPHILUS CAP (BACID) PO SCH (08:21)
[2024-09-22] MEDS: FUROSEMIDE 40 MG TAB PO SCH (08:22)
[2024-09-22] MEDS: INSULIN LISPRO (NovoLOG) PER UNIT SC SCH ×2 (08:23→20:24)
[2024-09-22] MEDS: HumuLIN N INSULIN (NovoLIN N) PER UNIT SC SCH (08:23)
[2024-09-22 09:39] LABS: VANCOMYCIN RANDOM 19.6 UG/ML
[2024-09-22] MEDS: VANCOMYCIN/WATER FOR INJ 1,000 MG in IV 1 EA IV SCH (10:53)
[2024-09-22 12:00] VITALS: BP 156/63; TEMP 98.1; O2SAT 96
[2024-09-22 19:57] VITALS: BP 153/50; TEMP 97.9; O2SAT 98
[2024-09-22] MEDS: LEVEMIR (INSULIN DETEMIR) 1 UNITS/0.01ML SC SCH (20:24)
[2024-09-22] MEDS: LATANOPROST 0.005% OPHTH SOLN 2.5 ML OU SCH (22:27)
[2024-09-23 04:12] VITALS: BP 127/48; TEMP 96.9; O2SAT 98
[2024-09-23 06:12] LABS: HEMATOCRIT 32.2 % (36.0-47.0); HEMOGLOBIN 10.9 g/dl (12.0-15.5); MEAN CORPUSCULAR HEMOGLOBIN 37.5 pg (27.0-33.0); MEAN CORPUSCULAR HGB CONC 33.9 g/dl (32.0-36.5); MEAN CORPUSCULAR VOLUME 110.7 fl (80.0-96.0); RED BLOOD COUNT 2.91 10^6/uL (4.00-5.40); WHITE BLOOD COUNT 3.5 10^3/uL (4.0-10.0)
[2024-09-23 06:21] LABS: PLATELET COUNT, AUTOMATED 49 10^3/uL (150-450)
[2024-09-23 06:59] LABS: ALBUMIN 2.2 G/DL (3.2-5.2); CREATININE FOR GFR 1.03 MG/DL (0.55-1.30); POTASSIUM SERUM 3.4 MMOL/L (3.5-5.1); TOTAL PROTEIN 5.4 G/DL (5.7-8.2)
[2024-09-23] MEDS: POTASSIUM CHLORIDE 10MEQ SR TABLET PO ONE (07:53)
[2024-09-23] MEDS: NORCO, ANEXSIA 5/325MG TABLET (HYDROcodone/ACETAMINOPHEN) PO PRN (07:58)
[2024-09-23] MEDS: KETOROLAC 30 MG/ML 1ML VIAL IV ONE (11:06)
[2024-09-23] MEDS: VANCOMYCIN 750MG/150 ML IV BAG IV SCH (11:10)
[2024-09-23 12:50] VITALS: BP 149/55; TEMP 97.7; O2SAT 97
[2024-09-23 20:14] VITALS: BP 140/58; TEMP 97.9; O2SAT 98
[2024-09-23] MEDS: LEVEMIR (INSULIN DETEMIR) 1 UNITS/0.01ML SC SCH (20:31)
[2024-09-24 04:00] VITALS: BP 152/65; TEMP 97.7; O2SAT 97
[2024-09-24] MEDS: GLUCOSE 4 GM CHEW PO PRN (06:36)
[2024-09-24 06:44] LABS: HEMATOCRIT 35.2 % (36.0-47.0); HEMOGLOBIN 11.9 g/dl (12.0-15.5); MEAN CORPUSCULAR HGB CONC 33.8 g/dl (32.0-36.5); MEAN CORPUSCULAR VOLUME 112.5 fl (80.0-96.0); RED BLOOD COUNT 3.13 10^6/uL (4.00-5.40); WHITE BLOOD COUNT 4.3 10^3/uL (4.0-10.0)
[2024-09-24 06:51] LABS: PLATELET COUNT, AUTOMATED 64 10^3/uL (150-450)
[2024-09-24 07:09] LABS: ALBUMIN 2.3 G/DL (3.2-5.2); BILIRUBIN,TOTAL 2.4 MG/DL (0.3-1.2); CALCIUM LEVEL 8.3 MG/DL (8.3-10.6); CREATININE FOR GFR 1.09 MG/DL (0.55-1.30); GLOMERULAR FILTRATION RATE 51.5 (>39); POTASSIUM SERUM 4.1 MMOL/L (3.5-5.1); TOTAL PROTEIN 5.9 G/DL (5.7-8.2)
[2024-09-24 08:19] LABS: BILIRUBIN,DIRECT 1.1 MG/DL (<0.4)
[2024-09-24] MEDS ORDERED: RISATAB3 PO (08:50)
[2024-09-24] MEDS ORDERED: DALV1SOL IV (08:50)
[2024-09-24] MEDS ORDERED: ACET32TAB PO (08:50)
[2024-09-24] MEDS ORDERED: HYDR-3713 PO ×2 (08:50→08:55)
[2024-09-24 09:16] VITALS: BP 158/62
[2024-09-24 12:00] VITALS: BP 148/70; TEMP 97.5; O2SAT 96
== END 2024-09-24 11:00 | disposition home or self-care (01) | DRG 603 ==
LOC: M ED 13:48 → M ED INP 21:27 → M MS5PR 22:16
PROVIDERS: ADMIT Student in an Organized Health Care Education/Training Program; ATTEND Internal Medicine
DX: L03.115 Cellulitis of right lower limb (principal); I10 Essential (primary) hypertension; M10.9 Gout, unspecified; E10.9 Type 1 diabetes mellitus without complications; H40.9 Unspecified glaucoma; K75.81 Nonalcoholic steatohepatitis (NASH); K74.69 Other cirrhosis of liver; R60.0 Localized edema; E78.5 Hyperlipidemia, unspecified; D69.6 Thrombocytopenia, unspecified; E83.51 Hypocalcemia; M85.80 Other specified disorders of bone density and structure, unspecified site; Z79.4 Long term (current) use of insulin; Z79.899 Other long term (current) drug therapy; Z88.0 Allergy status to penicillin; Z88.1 Allergy status to other antibiotic agents; Z88.5 Allergy status to narcotic agent; Z88.8 Allergy status to other drugs, medicaments and biological substances; Z91.012 Allergy to eggs; Z85.3 Personal history of malignant neoplasm of breast; Z91.040 Latex allergy status; Z90.49 Acquired absence of other specified parts of digestive tract; Z92.3 Personal history of irradiation; Z98.41 Cataract extraction status, right eye; Z98.42 Cataract extraction status, left eye

== ENCOUNTER 2024-09-24 11:02 | Outpatient (CLI) | payer MEDICARE ==
[~2024-09-24 11:02] MED LIST changes: +ACET32TAB PO; +DALV1SOL IV; +HYDR-3713 PO; +MULTTAB61 PO; +POTA10807 PO; -POTA10808 PO; +RISATAB3 PO
[2024-09-24] MEDS: DALBAVANCIN 1,500 MG in D5W 250 ML IV ONE (12:19)
== END 2024-09-24 12:55 | disposition home or self-care (01) ==
LOC: M INFU 11:02 → M MS5PR 11:02 → M INFU 12:55
PROVIDERS: ATTEND Internal Medicine
DX: L03.115 Cellulitis of right lower limb (principal)

== ENCOUNTER 2024-10-16 11:01 | Observation (INO) | payer MEDICARE ==
[~2024-10-16] VITALS: Ht 147.3 cm; Wt 86.8 kg
[2024-10-16] MEDS: FUROSEMIDE 40 MG TAB PO SCH (09:00)
[2024-10-16] MEDS: lisinopriL 5 MG TAB PO SCH (09:00)
[2024-10-16] MEDS: allopurinoL 100 MG TAB PO SCH (09:00)
[2024-10-16 12:23] LABS: BASO % 0.2 % (0.0-1.0); EOS % 0.2 % (0.0-3.0); HEMATOCRIT 29.6 % (36.0-47.0); HEMOGLOBIN 10.1 g/dl (12.0-15.5); LYMPH # 0.3 10^3/uL (1.5-5.0); LYMPH % 5.2 % (24.0-44.0); MEAN CORPUSCULAR HEMOGLOBIN 38.1 pg (27.0-33.0); MEAN CORPUSCULAR HGB CONC 34.1 g/dl (32.0-36.5); MEAN CORPUSCULAR VOLUME 111.7 fl (80.0-96.0); MONO # 0.3 10^3/uL (0.0-0.8); MONO % 4.9 % (2.0-8.0); NEUTROPHILS # 5.1 10^3/uL (1.5-8.5); RED BLOOD COUNT 2.65 10^6/uL (4.00-5.40); WHITE BLOOD COUNT 5.8 10^3/uL (4.0-10.0)
[2024-10-16 12:34] LABS: PLATELET COUNT, AUTOMATED 36 10^3/uL (150-450)
[2024-10-16] MEDS ORDERED: VANCOMYCIN HCL 2,000 MG, VIAL MATE ADAPTER 1 EACH in NS 500 ML IV ONE (12:40)
[2024-10-16 12:49] LABS: ALBUMIN 2.2 G/DL (3.2-5.2); BILIRUBIN,TOTAL 2.2 MG/DL (0.3-1.2); CALCIUM LEVEL 8.1 MG/DL (8.3-10.6); CREATININE FOR GFR 1.22 MG/DL (0.55-1.30); GLOMERULAR FILTRATION RATE 45.3 (>39); POTASSIUM SERUM 3.6 MMOL/L (3.5-5.1); TOTAL PROTEIN 5.5 G/DL (5.7-8.2)
[2024-10-16 13:06] LABS: C REACTIVE PROTEIN QUANTITATIV 5.87 MG/DL (<1.0)
[2024-10-16] MEDS: NS (Normal Saline) 0.9% 1,000 ML IV ONE (13:06)
[2024-10-16] MEDS: VANCOMYCIN HCL 1,500 MG, VIAL MATE ADAPTER 1 EACH in NS 500 ML IV ONE (13:06)
[2024-10-16] MEDS ORDERED: GLUCAGON INJ 1MG VIAL SC PRN (15:25)
[2024-10-16] MEDS ORDERED: GLUCOSE 4 GM CHEW PO PRN (15:25)
[2024-10-16] MEDS ORDERED: DEXTROSE 50% 50ML SYRINGE IV PRN (15:25)
[2024-10-16] MEDS ORDERED: RISATAB3 PO (15:47)
[2024-10-16] MEDS ORDERED: LISI5TAB11 PO (15:47)
[2024-10-16] MEDS ORDERED: ACET1TAB55 PO (15:47)
[2024-10-16] MEDS ORDERED: HOME MED LIST COMPLETE! XX SCH (15:50)
[2024-10-16 16:10] LABS: PERCENT SATURATION 7.4 % (13.2-45.0)
[2024-10-16 16:13] LABS: FOLATE 15.39 NG/ML (>5.4)
[2024-10-16] MEDS: INSULIN LISPRO (NovoLOG) PER UNIT SC SCH ×2 (17:30→21:00)
[2024-10-16 18:00] VITALS: BP 158/70; TEMP 98.1; O2SAT 96
[2024-10-16] MEDS: LACTOBACILLUS ACIDOPHILUS CAP (BACID) PO SCH (18:00)
[2024-10-16 20:00] VITALS: BP 139/45; TEMP 99; O2SAT 95
[2024-10-16] MEDS: POTASSIUM CHLORIDE 10MEQ SR TABLET PO SCH (20:58)
[2024-10-16] MEDS: LEVEMIR (INSULIN DETEMIR) 1 UNITS/0.01ML SC SCH (20:58)
[2024-10-16] MEDS: SIMVASTATIN 20 MG TAB PO SCH (21:00)
[2024-10-16] MEDS: LATANOPROST 0.005% OPHTH SOLN 2.5 ML OU SCH (21:00)
[2024-10-16] MEDS: bisoproloL fumarate 5 MG TAB PO SCH (21:00)
[2024-10-17 04:00] VITALS: BP 136/45; TEMP 97.3; O2SAT 90
[2024-10-17 07:07] LABS: HEMATOCRIT 28.2 % (36.0-47.0); HEMOGLOBIN 9.7 g/dl (12.0-15.5); MEAN CORPUSCULAR HEMOGLOBIN 38.5 pg (27.0-33.0); MEAN CORPUSCULAR HGB CONC 34.4 g/dl (32.0-36.5); MEAN CORPUSCULAR VOLUME 111.9 fl (80.0-96.0); RED BLOOD COUNT 2.52 10^6/uL (4.00-5.40); WHITE BLOOD COUNT 2.9 10^3/uL (4.0-10.0)
[2024-10-17 07:13] LABS: PLATELET COUNT, AUTOMATED 30 10^3/uL (150-450)
[2024-10-17 07:40] LABS: CALCIUM LEVEL 7.7 MG/DL (8.3-10.6); CREATININE FOR GFR 1.11 MG/DL (0.55-1.30); GLOMERULAR FILTRATION RATE 50.5 (>39); POTASSIUM SERUM 3.9 MMOL/L (3.5-5.1)
[2024-10-17] MEDS ORDERED: VANCOMYCIN 1,000MG/200 ML IV BAG IV SCH (08:00)
[2024-10-17] MEDS: ACETAMINOPHEN 325 MG TAB PO PRN (08:06)
[2024-10-17] MEDS: VANCOMYCIN HCL 750 MG, VIAL MATE ADAPTER 1 EACH in NS 250 ML IV SCH (08:07)
[2024-10-17] MEDS: ONDANSETRON 4MG ORAL DISINTEGRATING TAB PO PRN (08:17)
[2024-10-17 12:00] VITALS: BP 136/53; TEMP 98.1; O2SAT 97
[2024-10-17 20:17] VITALS: BP 140/51; TEMP 97.7; O2SAT 97
[2024-10-17 20:40] LABS: BILIRUBIN,DIRECT 0.7 MG/DL (<0.4); BILIRUBIN,TOTAL 1.3 MG/DL (0.3-1.2); TOTAL PROTEIN 5.2 G/DL (5.7-8.2)
[2024-10-17] MEDS: ACETAMINOPHEN 500 MG TAB PO ONE (20:43)
[2024-10-18 04:00] VITALS: BP 161/71; TEMP 97.9; O2SAT 97
[2024-10-18] MEDS: ACETAMINOPHEN 325 MG TAB PO ONE (06:39)
[2024-10-18 08:36] VITALS: BP 114/58
[2024-10-18 09:36] LABS: BASO % 0.3 % (0.0-1.0); EOS # 0.1 10^3/uL (0.0-0.5); EOS % 1.8 % (0.0-3.0); HEMATOCRIT 31.6 % (36.0-47.0); LYMPH # 0.8 10^3/uL (1.5-5.0); LYMPH % 12.6 % (24.0-44.0); MEAN CORPUSCULAR HEMOGLOBIN 38.3 pg (27.0-33.0); MEAN CORPUSCULAR HGB CONC 34.8 g/dl (32.0-36.5); MEAN CORPUSCULAR VOLUME 110.1 fl (80.0-96.0); MONO # 0.5 10^3/uL (0.0-0.8); MONO % 8.4 % (2.0-8.0); NEUTROPHILS # 4.8 10^3/uL (1.5-8.5); NEUTROPHILS % 76.6 % (36.0-66.0); RED BLOOD COUNT 2.87 10^6/uL (4.00-5.40); WHITE BLOOD COUNT 6.2 10^3/uL (4.0-10.0)
[2024-10-18 09:42] LABS: PLATELET COUNT, AUTOMATED 55 10^3/uL (150-450)
[2024-10-18 10:15] LABS: CLOSTRIDIUM DIFFICILE PCR NEGATIVE (NEGATIVE)
[2024-10-18 12:00] VITALS: BP 141/70; TEMP 98.4; O2SAT 96
== END 2024-10-18 12:00 | disposition home or self-care (01) ==
LOC: M ED 11:01 → M ED INP 11:02 → M MS5PR 17:40
PROVIDERS: ADMIT Internal Medicine; ATTEND Internal Medicine
DX: L03.115 Cellulitis of right lower limb (principal); Z66 Do not resuscitate; E11.9 Type 2 diabetes mellitus without complications; E78.5 Hyperlipidemia, unspecified; M10.9 Gout, unspecified; I12.9 Hypertensive chronic kidney disease with stage 1 through stage 4 chronic kidney disease, or unspecified chronic kidney disease; K75.81 Nonalcoholic steatohepatitis (NASH); D69.6 Thrombocytopenia, unspecified; Z85.3 Personal history of malignant neoplasm of breast; Z92.3 Personal history of irradiation; D61.818 Other pancytopenia; E87.20 Acidosis, unspecified; N18.9 Chronic kidney disease, unspecified; H40.9 Unspecified glaucoma; Z79.4 Long term (current) use of insulin; Z79.899 Other long term (current) drug therapy; Z91.012 Allergy to eggs; Z88.0 Allergy status to penicillin; Z88.1 Allergy status to other antibiotic agents; Z88.2 Allergy status to sulfonamides; Z88.5 Allergy status to narcotic agent; Z88.8 Allergy status to other drugs, medicaments and biological substances; Z91.040 Latex allergy status
CPT/HCPCS: 36415; 73620; 76705; 80048; 80053; 80076; 80202; 80503; 82105; 82607; 82728; 82746; 83550; 83605; 84145; 84238; 85025; 85027; 85046; 85049; 85055; 86140; 87040; 87324; 87641; 93005; 93041; 93971; 94760; 96374; 96376; 97116; 97161; 97530; 99285; G0378; J1815; J3370

== ENCOUNTER 2024-10-18 11:59 | Outpatient (CLI) | payer MEDICARE ==
[~2024-10-18] VITALS: Ht 147.3 cm; Wt 86.8 kg
[~2024-10-18 11:59] MED LIST changes: +ACET1TAB55 PO; +LISI5TAB11 PO
[2024-10-18] MEDS: DALBAVANCIN 1,500 MG in D5W 250 ML IV ONE (13:27)
[2024-10-18] MEDS ORDERED: NITROGLYCERIN 0.4MG SUBL TABLET As Ordered ONE (14:00)
[2024-10-18 14:02] VITALS: BP 139/66
[2024-10-18] MEDS: NITROGLYCERIN 0.4MG SUBL TABLET SL STA (14:02)
[2024-10-18] MEDS ORDERED: ISOVUE-370 76% 100ML VIAL As Ordered ONE (14:05)
== END 2024-10-18 19:15 | disposition home or self-care (01) ==
LOC: M OPCLI5PR 11:59 → M MS5PR 12:01 → M OPCLI5PR 19:15
PROVIDERS: ATTEND Internal Medicine
DX: L03.90 Cellulitis, unspecified (principal)
CPT/HCPCS: 36415; 71275; 74177; 83880; 84484; 93005; J0875; Q9967

== ENCOUNTER 2024-12-21 16:34 | Observation (INO) | payer MEDICARE ==
[~2024-12-21] VITALS: Ht 147.3 cm; Wt 73.9 kg
[2024-12-21 17:47] LABS: BASO % 0.2 % (0.0-1.0); HEMATOCRIT 38.2 % (36.0-47.0); HEMOGLOBIN 12.8 g/dl (12.0-15.5); LYMPH # 0.4 10^3/uL (1.5-5.0); LYMPH % 2.6 % (24.0-44.0); MEAN CORPUSCULAR HEMOGLOBIN 36.9 pg (27.0-33.0); MEAN CORPUSCULAR HGB CONC 33.5 g/dl (32.0-36.5); MEAN CORPUSCULAR VOLUME 110.1 fl (80.0-96.0); MONO # 0.5 10^3/uL (0.0-0.8); MONO % 3.1 % (2.0-8.0); NEUTROPHILS # 15.2 10^3/uL (1.5-8.5); NEUTROPHILS % 93.4 % (36.0-66.0); RED BLOOD COUNT 3.47 10^6/uL (4.00-5.40); WHITE BLOOD COUNT 16.2 10^3/uL (4.0-10.0)
[2024-12-21 17:50] LABS: PLATELET COUNT, AUTOMATED 73 10^3/uL (150-450)
[2024-12-21 17:58] LABS: ERYTHROCYTE SEDIMENTATION RATE 22 mm/hr (0-30)
[2024-12-21 18:16] LABS: C REACTIVE PROTEIN QUANTITATIV 2.5 MG/DL (<1.0); CALCIUM LEVEL 8.5 MG/DL (8.3-10.6); CREATININE FOR GFR 1.33 MG/DL (0.55-1.30); GLOMERULAR FILTRATION RATE 40.9 (>32); POTASSIUM SERUM 4.9 MMOL/L (3.5-5.1)
[2024-12-21 18:55] LABS: RSV AMPLIFICATION NEGATIVE (NEGATIVE)
[2024-12-21] MEDS: ONDANSETRON 4MG 2ML VIAL IV ONE (22:50)
[2024-12-21] MEDS: ACETAMINOPHEN *IV* 1,000 MG in IV 1 EA IV ONE (22:50)
[2024-12-22] MEDS ORDERED: GLUCAGON INJ 1MG VIAL SC PRN (01:15)
[2024-12-22] MEDS ORDERED: VANCOMYCIN HCL 1,000 MG, VIAL MATE ADAPTER 1 EACH in NS 250 ML IV SCH (01:15)
[2024-12-22] MEDS ORDERED: MAALOX 30 ML SUSP *UDC PO PRN (01:15)
[2024-12-22] MEDS ORDERED: MOM 30ML SUSPENSION UDC PO PRN (01:15)
[2024-12-22] MEDS ORDERED: GLUCOSE 4 GM CHEW PO PRN (01:15)
[2024-12-22] MEDS ORDERED: DEXTROSE 50% 50ML SYRINGE IV PRN (01:15)
[2024-12-22] MEDS ORDERED: HEPARIN SOD (PORCINE) 5000UNITS/ML 1ML VIAL/SYRINGE SC SCH (01:15)
[2024-12-22] MEDS ORDERED: FLUC150T9 PO (01:36)
[2024-12-22] MEDS ORDERED: POTA10CA70 PO (01:36)
[2024-12-22] MEDS ORDERED: CALC600T86 PO (01:36)
[2024-12-22] MEDS ORDERED: DOXY-346 PO (01:36)
[2024-12-22] MEDS ORDERED: SIMV20TA22 PO (01:36)
[2024-12-22] MEDS ORDERED: HOME MED LIST COMPLETE! XX SCH (01:40)
[2024-12-22] MEDS: VANCOMYCIN HCL 1,500 MG, VIAL MATE ADAPTER 1 EACH in NS 500 ML IV ONE (02:10)
[2024-12-22 02:17] LABS: INR 1.78; PROTHROMBIN TIME 20.9 SECONDS (12.5-14.5)
[2024-12-22] MEDS: MAG SULF 1GM/100ML (MAG RUN) 1 GM in IV 1 EA IV SCH (06:18)
[2024-12-22] MEDS: MAGNESIUM OXIDE 400MG TAB (MAG-OX) PO ONE (06:18)
[2024-12-22] MEDS: INSULIN LISPRO (NovoLOG) PER UNIT SC SCH ×2 (07:30→21:00)
[2024-12-22 08:24] LABS: CALCIUM LEVEL 7.6 MG/DL (8.3-10.6); CREATININE FOR GFR 1.53 MG/DL (0.55-1.30); GLOMERULAR FILTRATION RATE 34.8 (>32); POTASSIUM SERUM 4.6 MMOL/L (3.5-5.1)
[2024-12-22] MEDS: DOCUSATE SODIUM 100MG CAPSULE PO SCH (09:00)
[2024-12-22] MEDS: ACETAMINOPHEN 325 MG TAB PO PRN (11:30)
[2024-12-22 15:09] VITALS: BP 172/73; TEMP 98.1; O2SAT 97
[2024-12-22 15:55] LABS: ANTI-STREPTOLYSIN O QUANT 82.7 IU/ML (<195)
[2024-12-22] MEDS ORDERED: VANCOMYCIN HCL 750 MG, VIAL MATE ADAPTER 1 EACH in NS 250 ML IV SCH (20:00)
[2024-12-22 20:40] VITALS: BP 163/81; TEMP 99; O2SAT 96
[2024-12-22 23:00] VITALS: BP 151/58; TEMP 98.4; O2SAT 94
[2024-12-23 04:29] VITALS: BP 155/59; TEMP 97.9; O2SAT 94
[2024-12-23 07:07] LABS: HEMATOCRIT 29.8 % (36.0-47.0); MEAN CORPUSCULAR HEMOGLOBIN 37.5 pg (27.0-33.0); MEAN CORPUSCULAR HGB CONC 33.9 g/dl (32.0-36.5); MEAN CORPUSCULAR VOLUME 110.8 fl (80.0-96.0); RED BLOOD COUNT 2.69 10^6/uL (4.00-5.40); WHITE BLOOD COUNT 3.5 10^3/uL (4.0-10.0)
[2024-12-23 07:09] LABS: HEMOGLOBIN 10.1 g/dl (12.0-15.5); PLATELET COUNT, AUTOMATED 44 10^3/uL (150-450)
[2024-12-23 07:28] LABS: VANCOMYCIN RANDOM 12.8 UG/ML
[2024-12-23 07:29] LABS: ALBUMIN 2.2 G/DL (3.2-5.2); BILIRUBIN,TOTAL 1.2 MG/DL (0.3-1.2); CALCIUM LEVEL 7.9 MG/DL (8.3-10.6); CREATININE FOR GFR 1.32 MG/DL (0.55-1.30); GLOMERULAR FILTRATION RATE 41.2 (>32); POTASSIUM SERUM 4.6 MMOL/L (3.5-5.1); TOTAL PROTEIN 5.3 G/DL (5.7-8.2)
[2024-12-23 07:50] VITALS: BP 161/51; TEMP 98.2; O2SAT 95
[2024-12-23] MEDS: VANCOMYCIN HCL 750 MG, VIAL MATE ADAPTER 1 EACH in NS 250 ML IV SCH (08:27)
[2024-12-23 11:45] VITALS: BP 140/45; TEMP 98.1; O2SAT 98
[2024-12-23] MEDS: AMOXICILLIN SUSP 250MG/5ML 100ML BOTTLE PO ONE ×3 (11:56→13:16)
[2024-12-23 16:00] VITALS: BP 153/55; TEMP 98.1; O2SAT 98
[2024-12-23 20:00] VITALS: BP 138/49; TEMP 98.2; O2SAT 97
[2024-12-24] VITALS: BP 145/52; TEMP 98.6; O2SAT 97
[2024-12-24 00:03] VITALS: BP 145/52; TEMP 98.6; O2SAT 97
[2024-12-24 04:00] VITALS: BP 148/55; TEMP 98.1; O2SAT 95
[2024-12-24 07:40] LABS: VANCOMYCIN LEVEL TROUGH 13.2 UG/ML (10.0-20.0)
[2024-12-24 07:50] VITALS: BP 141/56; TEMP 97.9; O2SAT 95
[2024-12-24 08:03] LABS: CALCIUM LEVEL 7.6 MG/DL (8.3-10.6); CREATININE FOR GFR 1.18 MG/DL (0.55-1.30); GLOMERULAR FILTRATION RATE 46.9 (>32); POTASSIUM SERUM 4.3 MMOL/L (3.5-5.1)
[2024-12-24] MEDS ORDERED: AUGMENTIN 875 MG TAB PO SCH (09:00)
[2024-12-24] MEDS: LACTOBACILLUS ACIDOPHILUS CAP (BACID) PO SCH (11:31)
[2024-12-24] MEDS: AUGMENTIN 875 MG TAB PO SCH (11:32)
[2024-12-24 12:00] VITALS: BP 152/55; TEMP 97.9; O2SAT 97
[2024-12-24 12:05] LABS: BASO % 0.6 % (0.0-1.0); EOS % 1.2 % (0.0-3.0); HEMATOCRIT 30.4 % (36.0-47.0); HEMOGLOBIN 10.1 g/dl (12.0-15.5); LYMPH # 0.7 10^3/uL (1.5-5.0); LYMPH % 22.4 % (24.0-44.0); MEAN CORPUSCULAR HEMOGLOBIN 36.9 pg (27.0-33.0); MEAN CORPUSCULAR HGB CONC 33.2 g/dl (32.0-36.5); MEAN CORPUSCULAR VOLUME 110.9 fl (80.0-96.0); MONO # 0.2 10^3/uL (0.0-0.8); MONO % 6.3 % (2.0-8.0); NEUTROPHILS # 2.3 10^3/uL (1.5-8.5); NEUTROPHILS % 69.2 % (36.0-66.0); PLATELET COUNT, AUTOMATED 44 10^3/uL (150-450); RED BLOOD COUNT 2.74 10^6/uL (4.00-5.40); WHITE BLOOD COUNT 3.3 10^3/uL (4.0-10.0)
[2024-12-24 12:35] LABS: ALBUMIN 2.1 G/DL (3.2-5.2); BILIRUBIN,TOTAL 1.5 MG/DL (0.3-1.2); CALCIUM LEVEL 7.5 MG/DL (8.3-10.6); CREATININE FOR GFR 1.12 MG/DL (0.55-1.30); GLOMERULAR FILTRATION RATE 49.8 (>32); POTASSIUM SERUM 4.7 MMOL/L (3.5-5.1); TOTAL PROTEIN 5.4 G/DL (5.7-8.2)
[2024-12-24] MEDS ORDERED: VANI1CRE5 TOP (14:52)
[2024-12-24] MEDS ORDERED: AMOX875T2 PO (14:52)
[2024-12-24] MEDS ORDERED: GABA-1172 PO (14:52)
[2024-12-24] MEDS ORDERED: JOBSMIS65 MC (14:53)
[2024-12-24] MEDS: GABAPENTIN 300 MG CAP PO SCH (15:28)
[2024-12-24] MEDS: VANICREAM MOISTURIZING SKIN CREAM 113GM TUBE TOP SCH (15:28)
== END 2024-12-24 16:10 | disposition home or self-care (01) ==
LOC: M ED 16:34 → M ED INP 16:35 → M MSPAV 12-22 15:09
PROVIDERS: ADMIT Family Medicine; ATTEND Student in an Organized Health Care Education/Training Program
DX: L03.116 Cellulitis of left lower limb (principal); E10.9 Type 1 diabetes mellitus without complications; I89.0 Lymphedema, not elsewhere classified; I12.9 Hypertensive chronic kidney disease with stage 1 through stage 4 chronic kidney disease, or unspecified chronic kidney disease; N18.30 Chronic kidney disease, stage 3 unspecified; D69.6 Thrombocytopenia, unspecified; D72.829 Elevated white blood cell count, unspecified; R79.82 Elevated C-reactive protein (CRP); R60.1 Generalized edema; M25.572 Pain in left ankle and joints of left foot; Z87.2 Personal history of diseases of the skin and subcutaneous tissue; Z88.1 Allergy status to other antibiotic agents; Z88.2 Allergy status to sulfonamides; Z88.0 Allergy status to penicillin; R01.1 Cardiac murmur, unspecified; R11.2 Nausea with vomiting, unspecified; R68.83 Chills (without fever); R51.9 Headache, unspecified; R19.7 Diarrhea, unspecified; E78.5 Hyperlipidemia, unspecified; M10.9 Gout, unspecified; Z85.3 Personal history of malignant neoplasm of breast; Z92.3 Personal history of irradiation; K75.81 Nonalcoholic steatohepatitis (NASH); H40.9 Unspecified glaucoma; K58.9 Irritable bowel syndrome, unspecified; M85.80 Other specified disorders of bone density and structure, unspecified site; Z90.79 Acquired absence of other genital organ(s); Z90.89 Acquired absence of other organs; Z87.442 Personal history of urinary calculi; Z90.49 Acquired absence of other specified parts of digestive tract; Z98.890 Other specified postprocedural states; Z86.0100 Personal history of colon polyps, unspecified; Z83.2 Family history of diseases of the blood and blood-forming organs and certain disorders involving the immune mechanism; Z82.49 Family history of ischemic heart disease and other diseases of the circulatory system; Z83.3 Family history of diabetes mellitus; Z80.42 Family history of malignant neoplasm of prostate; Z82.3 Family history of stroke; Z98.41 Cataract extraction status, right eye; Z98.42 Cataract extraction status, left eye; Z91.012 Allergy to eggs; Z91.040 Latex allergy status; Z88.8 Allergy status to other drugs, medicaments and biological substances; Z88.5 Allergy status to narcotic agent; Z88.3 Allergy status to other anti-infective agents; Z79.899 Other long term (current) drug therapy; Z79.2 Long term (current) use of antibiotics; Z79.4 Long term (current) use of insulin
CPT/HCPCS: 36415; 80048; 80053; 80202; 83735; 85025; 85027; 85049; 85055; 85610; 85652; 85730; 86063; 86140; 87040; 87070; 87205; 87631; 87641; 93971; 96365; 96367; 96375; 96376; 97161; 99285; G0378; J0131; J1815; J2405; J3370; J3475

== ENCOUNTER 2025-01-14 10:57 | Inpatient (IN) | payer MEDICARE ==
[~2025-01-14] VITALS: Ht 149.9 cm; Wt 77.2 kg
[2025-01-14] MEDS: allopurinoL 100 MG TAB PO SCH (09:00)
[2025-01-14] MEDS: lisinopriL 5 MG TAB PO SCH (09:00)
[2025-01-14] MEDS: GABAPENTIN 300 MG CAP PO SCH (09:00)
[2025-01-14] MEDS: POTASSIUM CHLORIDE 10MEQ SR TABLET PO SCH (09:00)
[~2025-01-14 10:57] MED LIST changes: +AMOX875T2 PO; +CALC600T86 PO; +DOXY-346 PO; +FLUC150T9 PO; +GABA-1172 PO; +JOBSMIS65 MC; +VANI1CRE5 TOP; +probiotic gummies PO
[2025-01-14 12:18] LABS: BASO % 0.7 % (0.0-1.0); EOS # 0.2 10^3/uL (0.0-0.5); EOS % 2.9 % (0.0-3.0); HEMATOCRIT 35.4 % (36.0-47.0); LYMPH # 0.9 10^3/uL (1.5-5.0); LYMPH % 15.8 % (24.0-44.0); MEAN CORPUSCULAR HEMOGLOBIN 37.9 pg (27.0-33.0); MEAN CORPUSCULAR HGB CONC 33.9 g/dl (32.0-36.5); MEAN CORPUSCULAR VOLUME 111.7 fl (80.0-96.0); MONO # 0.5 10^3/uL (0.0-0.8); MONO % 8.8 % (2.0-8.0); NEUTROPHILS % 71.3 % (36.0-66.0); PLATELET COUNT, AUTOMATED 54 10^3/uL (150-450); RED BLOOD COUNT 3.17 10^6/uL (4.00-5.40); WHITE BLOOD COUNT 5.6 10^3/uL (4.0-10.0)
[2025-01-14 12:23] LABS: ERYTHROCYTE SEDIMENTATION RATE 43 mm/hr (0-30)
[2025-01-14] MEDS: VANCOMYCIN HCL 1,500 MG, VIAL MATE ADAPTER 1 EACH in NS 500 ML IV ONE (12:48)
[2025-01-14 12:49] LABS: C REACTIVE PROTEIN QUANTITATIV 9.64 MG/DL (<1.0)
[2025-01-14 12:50] LABS: ALBUMIN 2.7 G/DL (3.2-5.2); BILIRUBIN,DIRECT 0.9 MG/DL (<0.4); BILIRUBIN,TOTAL 2.2 MG/DL (0.3-1.2); CALCIUM LEVEL 8.7 MG/DL (8.3-10.6); CREATININE FOR GFR 1.34 MG/DL (0.55-1.30); GLOMERULAR FILTRATION RATE 40.5 (>32); POTASSIUM SERUM 4.1 MMOL/L (3.5-5.1); TOTAL PROTEIN 6.4 G/DL (5.7-8.2)
[2025-01-14 13:01] LABS: PROCALCITONIN 1.09 ng/ml
[2025-01-14] MEDS ORDERED: GLUCAGON INJ 1MG VIAL SC PRN (15:40)
[2025-01-14] MEDS ORDERED: GLUCOSE 4 GM CHEW PO PRN (15:40)
[2025-01-14] MEDS ORDERED: DEXTROSE 50% 50ML SYRINGE IV PRN (15:40)
[2025-01-14] MEDS ORDERED: NEUR300C PO (16:51)
[2025-01-14] MEDS ORDERED: ACET650T3 PO (16:51)
[2025-01-14] MEDS ORDERED: VANI1CRE5 TOP (16:51)
[2025-01-14] MEDS ORDERED: HOME MED LIST COMPLETE! XX SCH (16:55)
[2025-01-14] MEDS ORDERED: AMPICILLIN SOD/SULBACTAM SOD 1.5 GM in DEXTROSE 5% (D5W) ADV/MINI-BAG 50 ML IV SCH (17:00)
[2025-01-14 17:25] LABS: INR 1.43; PARTIAL THROMBOPLASTIN TIME 42.2 SECONDS (24.8-34.2); PROTHROMBIN TIME 17.7 SECONDS (12.5-14.5)
[2025-01-14] MEDS: INSULIN LISPRO (NovoLOG) PER UNIT SC SCH ×2 (17:30→20:14)
[2025-01-14] MEDS: AMPICILLIN SOD/SULBACTAM SOD 3 GM in D5W MINI-BAG 100 ML IV SCH (17:58)
[2025-01-14] MEDS: LACTOBACILLUS ACIDOPHILUS CAP (BACID) PO SCH (17:59)
[2025-01-14] MEDS ORDERED: VANICREAM MOISTURIZING SKIN CREAM 113GM TUBE TOP PRN (19:00)
[2025-01-14] MEDS: SIMVASTATIN 20 MG TAB PO SCH (20:20)
[2025-01-14] MEDS: LanTUS (INSULIN GLARGINE INJ) 1 UNITS/0.01 ML SC SCH (20:20)
[2025-01-14] MEDS: bisoproloL fumarate 5 MG TAB PO SCH (20:21)
[2025-01-14] MEDS: HEPARIN SOD (PORCINE) 5000UNITS/ML 1ML VIAL/SYRINGE SC SCH (20:21)
[2025-01-14] MEDS: LATANOPROST 0.005% OPHTH SOLN 2.5 ML OU SCH (20:27)
[2025-01-14] MEDS: ONDANSETRON 4MG 2ML VIAL IV ONE (22:56)
[2025-01-15 05:57] LABS: HEMATOCRIT 30.9 % (36.0-47.0); HEMOGLOBIN 10.3 g/dl (12.0-15.5); MEAN CORPUSCULAR HEMOGLOBIN 36.7 pg (27.0-33.0); MEAN CORPUSCULAR HGB CONC 33.3 g/dl (32.0-36.5); RED BLOOD COUNT 2.81 10^6/uL (4.00-5.40); WHITE BLOOD COUNT 4.4 10^3/uL (4.0-10.0)
[2025-01-15 05:58] LABS: PLATELET COUNT, AUTOMATED 49 10^3/uL (150-450)
[2025-01-15] MEDS: ACETAMINOPHEN 325 MG TAB PO PRN (06:00)
[2025-01-15 06:19] LABS: ALBUMIN 2.1 G/DL (3.2-5.2); CALCIUM LEVEL 7.5 MG/DL (8.3-10.6); CREATININE FOR GFR 1.21 MG/DL (0.55-1.30); GLOMERULAR FILTRATION RATE 45.6 (>32); TOTAL PROTEIN 5.1 G/DL (5.7-8.2)
[2025-01-15] MEDS ORDERED: HumuLIN N INSULIN (NovoLIN N) PER UNIT SC SCH (09:00)
[2025-01-15 13:32] VITALS: BP 117/69; TEMP 98.1; O2SAT 98
[2025-01-15 19:45] VITALS: BP 134/57; TEMP 98.1; O2SAT 96
[2025-01-16 03:44] VITALS: BP 102/51; TEMP 97.7; O2SAT 94
[2025-01-16 06:41] LABS: HEMATOCRIT 32.4 % (36.0-47.0); HEMOGLOBIN 10.7 g/dl (12.0-15.5); MEAN CORPUSCULAR VOLUME 112.1 fl (80.0-96.0); RED BLOOD COUNT 2.89 10^6/uL (4.00-5.40); WHITE BLOOD COUNT 3.2 10^3/uL (4.0-10.0)
[2025-01-16 06:56] LABS: PLATELET COUNT, AUTOMATED 45 10^3/uL (150-450)
[2025-01-16 07:09] LABS: ALBUMIN 2.1 G/DL (3.2-5.2); BILIRUBIN,TOTAL 1.9 MG/DL (0.3-1.2); CALCIUM LEVEL 7.8 MG/DL (8.3-10.6); CREATININE FOR GFR 1.2 MG/DL (0.55-1.30); TOTAL PROTEIN 5.2 G/DL (5.7-8.2)
[2025-01-16 12:00] VITALS: BP 124/47; TEMP 97.9; O2SAT 97
[2025-01-16 20:10] VITALS: BP 140/53; TEMP 96.8; O2SAT 99
[2025-01-16] MEDS: FUROSEMIDE 40MG/4ML VIAL IV ONE (21:17)
[2025-01-17 03:24] VITALS: BP 148/59; TEMP 98.1; O2SAT 96
[2025-01-17 06:35] LABS: HEMATOCRIT 30.8 % (36.0-47.0); HEMOGLOBIN 10.1 g/dl (12.0-15.5); MEAN CORPUSCULAR HEMOGLOBIN 36.2 pg (27.0-33.0); MEAN CORPUSCULAR HGB CONC 32.8 g/dl (32.0-36.5); MEAN CORPUSCULAR VOLUME 110.4 fl (80.0-96.0); RED BLOOD COUNT 2.79 10^6/uL (4.00-5.40); WHITE BLOOD COUNT 4.1 10^3/uL (4.0-10.0)
[2025-01-17 06:40] LABS: PLATELET COUNT, AUTOMATED 50 10^3/uL (150-450)
[2025-01-17 07:00] LABS: CALCIUM LEVEL 7.5 MG/DL (8.3-10.6); CREATININE FOR GFR 1.42 MG/DL (0.55-1.30); GLOMERULAR FILTRATION RATE 37.9 (>32); POTASSIUM SERUM 3.9 MMOL/L (3.5-5.1); TOTAL PROTEIN 5.2 G/DL (5.7-8.2)
[2025-01-17 12:00] VITALS: BP 150/98; TEMP 97.7; O2SAT 99
[2025-01-17] MEDS ORDERED: AMOX875T2 PO (18:57)
[2025-01-17] MEDS ORDERED: AMOX500C PO (18:57)
[2025-01-17 20:17] VITALS: BP 163/50; TEMP 98.1; O2SAT 97
[2025-01-18 03:50] VITALS: BP 129/46; TEMP 97.9; O2SAT 96
[2025-01-18 06:19] LABS: HEMATOCRIT 30.4 % (36.0-47.0); MEAN CORPUSCULAR HEMOGLOBIN 36.5 pg (27.0-33.0); MEAN CORPUSCULAR HGB CONC 32.9 g/dl (32.0-36.5); MEAN CORPUSCULAR VOLUME 110.9 fl (80.0-96.0); RED BLOOD COUNT 2.74 10^6/uL (4.00-5.40); WHITE BLOOD COUNT 4.5 10^3/uL (4.0-10.0)
[2025-01-18 06:36] LABS: PLATELET COUNT, AUTOMATED 49 10^3/uL (150-450)
[2025-01-18 06:42] LABS: BILIRUBIN,TOTAL 1.7 MG/DL (0.3-1.2); CALCIUM LEVEL 7.7 MG/DL (8.3-10.6); CREATININE FOR GFR 2.23 MG/DL (0.55-1.30); GLOMERULAR FILTRATION RATE 22.5 (>32)
[2025-01-18] MEDS: NS (Normal Saline) 0.9% 1,000 ML IV SCH (08:16)
[2025-01-18 12:00] VITALS: BP 110/50; TEMP 97.9; O2SAT 98
[2025-01-18] MEDS: AUGMENTIN 500MG TAB PO SCH (14:57)
[2025-01-18 20:14] VITALS: BP 104/66; TEMP 98.2; O2SAT 97
[2025-01-19 05:52] VITALS: BP 104/67; TEMP 98.1; O2SAT 96
[2025-01-19 06:12] LABS: HEMATOCRIT 30.2 % (36.0-47.0); HEMOGLOBIN 10.1 g/dl (12.0-15.5); MEAN CORPUSCULAR HGB CONC 33.4 g/dl (32.0-36.5); MEAN CORPUSCULAR VOLUME 110.6 fl (80.0-96.0); RED BLOOD COUNT 2.73 10^6/uL (4.00-5.40); WHITE BLOOD COUNT 6.4 10^3/uL (4.0-10.0)
[2025-01-19 06:17] LABS: PLATELET COUNT, AUTOMATED 56 10^3/uL (150-450)
[2025-01-19 06:36] LABS: CALCIUM LEVEL 7.6 MG/DL (8.3-10.6); CREATININE FOR GFR 2.81 MG/DL (0.55-1.30); GLOMERULAR FILTRATION RATE 17.2 (>32); POTASSIUM SERUM 4.3 MMOL/L (3.5-5.1); TOTAL PROTEIN 5.2 G/DL (5.7-8.2)
[2025-01-19 12:00] VITALS: BP 122/64; TEMP 98.1; O2SAT 100
[2025-01-19] MEDS: ALBUTEROL SULFATE 2.5MG/0.5ML INH NEB SOLN NEB SCH (15:49)
[2025-01-19] MEDS: LORATADINE 10 MG TAB PO SCH (20:44)
[2025-01-20 04:00] VITALS: BP 139/45; TEMP 97.9; O2SAT 98
[2025-01-20 05:43] LABS: HEMATOCRIT 30.5 % (36.0-47.0); HEMOGLOBIN 10.3 g/dl (12.0-15.5); MEAN CORPUSCULAR HEMOGLOBIN 37.2 pg (27.0-33.0); MEAN CORPUSCULAR HGB CONC 33.8 g/dl (32.0-36.5); MEAN CORPUSCULAR VOLUME 110.1 fl (80.0-96.0); RED BLOOD COUNT 2.77 10^6/uL (4.00-5.40); WHITE BLOOD COUNT 5.8 10^3/uL (4.0-10.0)
[2025-01-20 05:48] LABS: PLATELET COUNT, AUTOMATED 60 10^3/uL (150-450)
[2025-01-20 06:04] LABS: ALBUMIN 2.1 G/DL (3.2-5.2); CALCIUM LEVEL 7.9 MG/DL (8.3-10.6); CREATININE FOR GFR 3.1 MG/DL (0.55-1.30); GLOMERULAR FILTRATION RATE 15.4 (>32); POTASSIUM SERUM 4.4 MMOL/L (3.5-5.1); TOTAL PROTEIN 5.4 G/DL (5.7-8.2)
[2025-01-20] MEDS: FUROSEMIDE 100MG/10ML VIAL IV ONE (06:20)
[2025-01-20 12:30] VITALS: BP 137/92; TEMP 97.7; O2SAT 95
[2025-01-20 16:00] LABS: APPEARANCE, URINE CLEAR (CLEAR); BACTERIA, URINE AUTO NEGATIVE (NEGATIVE); BILIRUBIN, URINE AUTO NEGATIVE (NEGATIVE); BLOOD, URINE BLOOD 1+ (NEGATIVE); COLOR, URINE YELLOW (YELLOW); GLUCOSE, URINE (UA) AUTO NEGATIVE (NEGATIVE); KETONE, URINE AUTO NEGATIVE (NEGATIVE); LEUKOCYTE ESTERASE, URINE AUTO NEGATIVE (NEGATIVE); MUCUS, URINE SMALL (NEGATIVE); NITRITE, URINE AUTO NEGATIVE (NEGATIVE); PROTEIN, URINE AUTO NEGATIVE (NEGATIVE); RBC, URINE AUTO 4 /HPF (0-3); SPECIFIC GRAVITY URINE AUTO 1.006 (1.002-1.035); SQUAMOUS EPITHELIAL CELL UR AU 0 /HPF (0-6); UROBILINOGEN, URINE AUTO 0.2 mg/dL (0.0-2.0); WBC, URINE AUTO 1 /HPF (0-3)
[2025-01-20 20:06] VITALS: BP 139/48; TEMP 98.8; O2SAT 94
[2025-01-21 04:19] VITALS: BP 142/51; TEMP 98.4; O2SAT 93
[2025-01-21 09:14] LABS: BASO # 0.1 10^3/uL (0.0-0.2); BASO % 0.8 % (0.0-1.0); EOS # 0.1 10^3/uL (0.0-0.5); EOS % 1.4 % (0.0-3.0); HEMATOCRIT 30.5 % (36.0-47.0); HEMOGLOBIN 10.1 g/dl (12.0-15.5); LYMPH % 15.1 % (24.0-44.0); MEAN CORPUSCULAR HEMOGLOBIN 36.3 pg (27.0-33.0); MEAN CORPUSCULAR HGB CONC 33.1 g/dl (32.0-36.5); MEAN CORPUSCULAR VOLUME 109.7 fl (80.0-96.0); MONO # 0.5 10^3/uL (0.0-0.8); MONO % 7.2 % (2.0-8.0); NEUTROPHILS # 4.8 10^3/uL (1.5-8.5); NEUTROPHILS % 74.9 % (36.0-66.0); RED BLOOD COUNT 2.78 10^6/uL (4.00-5.40); WHITE BLOOD COUNT 6.4 10^3/uL (4.0-10.0)
[2025-01-21 09:18] LABS: PLATELET COUNT, AUTOMATED 68 10^3/uL (150-450)
[2025-01-21 09:41] LABS: CALCIUM LEVEL 7.8 MG/DL (8.3-10.6); CREATININE FOR GFR 3.04 MG/DL (0.55-1.30); GLOMERULAR FILTRATION RATE 15.7 (>32); POTASSIUM SERUM 3.7 MMOL/L (3.5-5.1)
[2025-01-21 12:00] VITALS: BP 136/55; TEMP 97.5; O2SAT 95
[2025-01-22 04:37] LABS: BASO % 0.7 % (0.0-1.0); EOS # 0.1 10^3/uL (0.0-0.5); EOS % 1.5 % (0.0-3.0); LYMPH # 0.8 10^3/uL (1.5-5.0); LYMPH % 19.5 % (24.0-44.0); MEAN CORPUSCULAR HEMOGLOBIN 37.3 pg (27.0-33.0); MEAN CORPUSCULAR HGB CONC 33.3 g/dl (32.0-36.5); MEAN CORPUSCULAR VOLUME 111.9 fl (80.0-96.0); MONO # 0.3 10^3/uL (0.0-0.8); MONO % 7.3 % (2.0-8.0); NEUTROPHILS # 2.9 10^3/uL (1.5-8.5); NEUTROPHILS % 70.3 % (36.0-66.0); RED BLOOD COUNT 2.68 10^6/uL (4.00-5.40); WHITE BLOOD COUNT 4.1 10^3/uL (4.0-10.0)
[2025-01-22 04:40] LABS: PLATELET COUNT, AUTOMATED 52 10^3/uL (150-450)
[2025-01-22 04:49] VITALS: BP 118/51; TEMP 98.6; O2SAT 94
[2025-01-22 05:10] LABS: CALCIUM LEVEL 7.5 MG/DL (8.3-10.6); CREATININE FOR GFR 2.67 MG/DL (0.55-1.30); GLOMERULAR FILTRATION RATE 18.3 (>32); POTASSIUM SERUM 3.8 MMOL/L (3.5-5.1)
[2025-01-22 12:00] VITALS: BP 128/66; TEMP 97.9; O2SAT 100
[2025-01-22 20:00] VITALS: BP 131/64; TEMP 97.9; O2SAT 96
[2025-01-22] MEDS ORDERED: DEXTROMETHORPHAN 60MG/10ML SUSP 90ML BTL(DELSYM) PO PRN (21:35)
[2025-01-23 04:00] VITALS: BP 137/48; TEMP 97.9; O2SAT 95
[2025-01-23 06:12] LABS: BASO % 0.4 % (0.0-1.0); EOS # 0.1 10^3/uL (0.0-0.5); EOS % 1.8 % (0.0-3.0); HEMATOCRIT 29.3 % (36.0-47.0); HEMOGLOBIN 9.9 g/dl (12.0-15.5); LYMPH # 0.7 10^3/uL (1.5-5.0); LYMPH % 14.4 % (24.0-44.0); MEAN CORPUSCULAR HEMOGLOBIN 37.8 pg (27.0-33.0); MEAN CORPUSCULAR HGB CONC 33.8 g/dl (32.0-36.5); MEAN CORPUSCULAR VOLUME 111.8 fl (80.0-96.0); MONO # 0.3 10^3/uL (0.0-0.8); MONO % 6.7 % (2.0-8.0); NEUTROPHILS # 3.7 10^3/uL (1.5-8.5); NEUTROPHILS % 76.1 % (36.0-66.0); RED BLOOD COUNT 2.62 10^6/uL (4.00-5.40); WHITE BLOOD COUNT 4.9 10^3/uL (4.0-10.0)
[2025-01-23 06:23] LABS: PLATELET COUNT, AUTOMATED 61 10^3/uL (150-450)
[2025-01-23 06:24] LABS: CALCIUM LEVEL 7.8 MG/DL (8.3-10.6); CREATININE FOR GFR 2.18 MG/DL (0.55-1.30); GLOMERULAR FILTRATION RATE 23.1 (>32); POTASSIUM SERUM 3.9 MMOL/L (3.5-5.1)
[2025-01-23] MEDS ORDERED: ALBUTEROL SULFATE 2.5MG/0.5ML INH NEB SOLN NEB PRN (08:20)
[2025-01-23 12:00] VITALS: BP 143/58; TEMP 98.1; O2SAT 95
[2025-01-23 20:00] VITALS: BP 135/60; TEMP 97.9; O2SAT 94
[2025-01-23 20:47] VITALS: BP 135/60
[2025-01-24 04:00] VITALS: BP 129/54; TEMP 97; O2SAT 96
[2025-01-24 06:00] LABS: BASO % 0.6 % (0.0-1.0); EOS # 0.1 10^3/uL (0.0-0.5); EOS % 1.6 % (0.0-3.0); HEMATOCRIT 29.1 % (36.0-47.0); HEMOGLOBIN 9.7 g/dl (12.0-15.5); LYMPH # 0.8 10^3/uL (1.5-5.0); LYMPH % 16.8 % (24.0-44.0); MEAN CORPUSCULAR HGB CONC 33.3 g/dl (32.0-36.5); MEAN CORPUSCULAR VOLUME 111.1 fl (80.0-96.0); MONO # 0.3 10^3/uL (0.0-0.8); MONO % 6.7 % (2.0-8.0); NEUTROPHILS # 3.7 10^3/uL (1.5-8.5); NEUTROPHILS % 73.9 % (36.0-66.0); RED BLOOD COUNT 2.62 10^6/uL (4.00-5.40)
[2025-01-24 06:17] LABS: PLATELET COUNT, AUTOMATED 52 10^3/uL (150-450)
[2025-01-24 06:20] LABS: CALCIUM LEVEL 7.8 MG/DL (8.3-10.6); CREATININE FOR GFR 1.85 MG/DL (0.55-1.30); GLOMERULAR FILTRATION RATE 27.9 (>32); POTASSIUM SERUM 3.8 MMOL/L (3.5-5.1)
[2025-01-24 12:00] VITALS: BP 101/66; TEMP 98.1; O2SAT 95
== END 2025-01-24 14:59 | disposition home or self-care (01) | DRG 602 ==
LOC: M ED 10:57 → M ED INP 15:36 → M MSPAV 01-15 13:28
PROVIDERS: ADMIT Internal Medicine; ATTEND Student in an Organized Health Care Education/Training Program
PROC: B246ZZZ Ultrasonography of Right and Left Heart (ICD-10-PCS; principal; 2025-01-24)
DX: L03.116 Cellulitis of left lower limb (principal); I50.33 Acute on chronic diastolic (congestive) heart failure; N17.9 Acute kidney failure, unspecified; I13.0 Hypertensive heart and chronic kidney disease with heart failure and stage 1 through stage 4 chronic kidney disease, or unspecified chronic kidney disease; R18.8 Other ascites; N13.30 Unspecified hydronephrosis; H40.9 Unspecified glaucoma; M10.9 Gout, unspecified; K58.9 Irritable bowel syndrome, unspecified; E78.5 Hyperlipidemia, unspecified; E11.22 Type 2 diabetes mellitus with diabetic chronic kidney disease; K75.81 Nonalcoholic steatohepatitis (NASH); N18.30 Chronic kidney disease, stage 3 unspecified; E66.9 Obesity, unspecified; D69.6 Thrombocytopenia, unspecified; I89.0 Lymphedema, not elsewhere classified; R05.9 Cough, unspecified; I08.0 Rheumatic disorders of both mitral and aortic valves; M85.80 Other specified disorders of bone density and structure, unspecified site; Z90.49 Acquired absence of other specified parts of digestive tract; Z90.79 Acquired absence of other genital organ(s); Z79.4 Long term (current) use of insulin; Z79.899 Other long term (current) drug therapy; Z88.1 Allergy status to other antibiotic agents; Z88.2 Allergy status to sulfonamides; Z88.5 Allergy status to narcotic agent; Z88.8 Allergy status to other drugs, medicaments and biological substances; Z91.040 Latex allergy status; Z91.012 Allergy to eggs; Z85.3 Personal history of malignant neoplasm of breast; Z92.3 Personal history of irradiation; Z86.73 Personal history of transient ischemic attack (TIA), and cerebral infarction without residual deficits